=== PATIENT | female | born 1975 | race Caucasian/White ===

== ENCOUNTER 2023-08-11 07:00 | Outpatient (OUT) | payer OTHER, SELFPAY ==
--- NOTE | 2023-08-11 07:00 | NM_ITS ---
The [address] [address] Patient Name: YASMIN MCDOWELL MRN: [id number] date: 1975 Sex: F Assigned Patient Location: [place] Current [place] Location: [place] Accession/Order Number: [id number] Exam Date: 08/11/2023 07:00 Report Date: 08/11/2023 13:03 At the request of: CHI CORREA Procedure: [place] hepatobiliary w pharm EXAMINATION: [place] hepatobiliary w pharm HISTORY: RIGHT UPPER QUADRANT PAIN COMPARISON: No relevant comparison available. TECHNIQUE: Radionuclide hepatobiliary imaging was performed after intravenous injection of 4.9 mCi Tc-99m DELL derivative with sequential acquisitions every 1 minute for one hour. Hepatobiliary imaging with gallbladder ejection fraction analysis was then performed with sequential imaging every 1 minute for 60 minutes following ingestion of 8 oz. Ensure Plus. FINDINGS: LIVER: Normal, prompt and uniform radiotracer uptake and clearing. BILIARY DUCTS: Normal radioisotopic biliary excretion. GALLBLADDER: Normal with no evidence of cystic duct obstruction. INTESTINE: Normal with no evidence of common biliary ductal obstruction. EJECTION FRACTION: 0 % within 60 minutes. (Normal EF > 38%). OTHER: Negative. [place] hepatobiliary w pharm IMPRESSION: 1. No imaging of the gallbladder despite normal gallbladder filling; ball-valve type obstruction versus biliary dyskinesia. Electronically authenticated by: NETTA CANO Date: 08/11/2023 13:03
== END 2023-08-11 07:01 | disposition home or self-care (01) ==
LOC: NM 07:00
PROVIDERS: PCP Family Medicine; Visit Provider Physician Assistant
DX: R10.11 Right upper quadrant pain (principal)
CPT/HCPCS: 78227; A9537

== ENCOUNTER 2023-10-15 12:29 | Emergency (ER) | payer OTHER, SELFPAY ==
[2023-10-15 12:33] VITALS: BP 133/72; PULSE 73; TEMP 36.7; O2SAT 98; BMI 30.4
--- NOTE | 2023-10-15 12:35 | XR_ITS ---
The [address] [address] Patient Name: YASMIN MCDOWELL MRN: [id number] date: 1975 Sex: F Assigned Patient Location: ER Current Patient Location: ER Accession/Order Number: [id number] Exam Date: 10/15/2023 12:50 Report Date: 10/15/2023 14:34 At the request of: LAVELLE STREETER Procedure: XR wrist LT min 3V EXAM: XR wrist LT min 3V HISTORY: fall COMPARISON: None. TECHNIQUE: 3 views. FINDINGS: Slightly impacted intra-articular fracture of the distal radius. Nondisplaced ulnar styloid process fracture. Diffuse soft tissue swelling. XR/XR wrist LT min 3V IMPRESSION: 1. Slightly impacted intra-articular distal radial fracture. 2. Nondisplaced ulnar styloid process fracture. 3. Diffuse soft tissue swelling. Electronically authenticated by: SUSAN IBARRA Date: 10/15/2023 14:34
--- OUTSIDE RECORDS SUMMARY | 2023-10-15 12:35 | XMS_ITS ---
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 Name Role Phone DR KARLA THORNTON Attending Unavailable NORBERTO, DR LEDEZMA Consulting Unavailable NORBERTO, DR LEDEZMA Primary Care Unavailable NORBERTO, DR LEDEZMA Admitting Unavailable MD Karla Thornton Primary Care Provider ELIJAH Correa Attending Provider MD Karla Thornton Primary Care Provider DO Evan Santillan Attending Provider Self, Referral Attending Provider Unavailable Evan Santillan Admitting Unavailable Evan Santillan Attending Unavailable Karla Thornton Primary Care Unavailable Self, Referral Admitting Unavailable Self, Referral Attending Unavailable Karla Thornton Primary Care Unavailable Samantha Horan Primary Care Provider [phone] YAAKOV MEDEIROS Attending Unavailable JANE PISANO Attending Unavailable SAMANTHA CORREA Attending Unavailable SAMANTHA CORREA Attending Unavailable EVAN SANTILLAN Attending Unavailable SAMANTHA CORREA Referring Unavailable Allergies Allergy Classification Reported Allergen(s) Allergy Type Date of Onset Reaction(s) Facility (1 source) Sulfamethoxazole / Trimethoprim Drug Allergy 11-28-19 14 [facility] Repository (7 sources) Sulfamethoxazole; Translations: [sulfamethoxazole] Drug Allergy 08-18-19 11 [facility] (7 sources) Trimethoprim; Translations: [trimethoprim] Drug Allergy 10-05-19 20 [facility] (3 sources) Hydroxychloroquine Drug Allergy 03-22-20 [facility] Work Phone: (3 sources) Lisinopril Allergy to substance 12-22-19 Shortness of breath [facility] (3 sources) Nitrofurantoin Drug Allergy 12-22-19 23 [facility] (3 sources) Sulfamethoxazole / Trimethoprim Drug Allergy 08-24-19 18 [facility] Encounters Encounter Date Encounter Type Care Provider Facility Start: 08-26-2023 End: 08-26-2023 ambulatory EVAN SANTILLAN Not Available Start: 07-11-2023 End: 07-11-2023 ambulatory SAMANTHA CORREA Not Available Start: 05-29-2023 Chart abstracting Samantha Stewartwarren er PA Work Phone: [facility] Start: 05-20-2023 Bamboo flowsheet Jane D Za hler DO Work Phone: [facility] Start: 05-20-2023 Bamboo flowsheet Jane D Za hler DO Work Phone: [facility] Start: 05-20-2023 End: 05-20-2023 ambulatory JANE PISANO Not Available Start: 05-20-2023 End: 05-20-2023 Office outpatient new 45 minutes Jane Murphyhler DO Work Phone: [facility] Comment on above: Long-term use of Jm quenil (Primary Dx); Dry eyes; Blepharitis of upper and lower eyelids of both eyes, unspecified type Start: 03-22-2023 End: 03-22-2023 ambulatory SAMANTHA CORREA Not Available Start: 03-02-2023 End: 03-02-2023 ambulatory YAAKOV MEDEIROS Not Available Start: 02-04-2023 End: 02-04-2023 ambulatory Referral Self Facility:[facility] Start: 02-04-2023 End: 02-04-2023 ambulatory MD Karla Thornton Work Phone: [facility] Work Phone: Start: 02-04-2023 End: 02-04-2023 Patient encounter procedure MD Karla Thornton Work Phone: [facility] Work Phone: Start: 01-27-2023 End: 01-27-2023 ambulatory Evan Esqueday Facility:[facility] Start: 01-27-2023 End: 01-27-2023 Departed Referred MD Karla Thornton Work Phone: [facility] Work Phone: Start: 01-22-2022 End: 01-22-2022 ambulatory MD Karla Thornton Work Phone: [facility] Work Phone: Start: 01-22-2022 End: 01-22-2022 Patient encounter procedure MD Karla Thornton Work Phone: [facility] Start: 02-23-2021 End: 02-23-[address] KARLA THORNTON Facility:[facility] Immunizations Immunization Date Immunization Notes Care Provider Fa cility 01-14-2021 tetanus toxoid, redu kamilah diphtheria toxoid, and acellular pertussis vaccine, adsorbed Jane Pisano DO Work Phone: [facility] 02-15-2018 seasonal influenza, intradermal, preservative free Jane Pisano DO Work Phone: [facility] 02-15-2018 influenza virus vacc ine, unspecified formulation Jane Pisano DO Work Phone: [facility] 02-18-2016 influenza, injectabl e, quadrivalent, contains preservative Jane Pisano DO Work Phone: [facility] Medications Current Medications Medication Drug Class(es) Dates Sig (Normalized) Sig (Original) cholecalciferol 0.125 mg oral capsule (3 sources) Vitamin D cholecalciferol (Vitamin D-3) 125 MCG (5000 UT) capsule 1 (one) time each day at the same time. 0 Active estradiol 1 mg oral tablet (3 sources) Estrogen take 1 tablet by mouth in the morning estradiol (Estrace) 1 MG tablet Take 1 mg by mouth in the morning. 0 Active famotidine 20 mg oral tablet (3 sources) Histamine-2 Receptor Antagonist Start: 10-05-19 take 1 tablet by mouth once daily Famotidine (Pepcid) 20 mg Tablet Active 20 MG PO Daily October 05, 2019 12:00am fluticasone propionate 0.5 mg/ml topical cream (3 sources) Corticosteroid fluticasone (Cut ivate) 0.05 % cream Apply 1 application topically in the morning and 1 application before bedtime. 0 Active hydroCHLOROthiazide 25 mg oral tablet (3 sources) Thiazide Diuretic take 1 tablet by mouth in the morning hydroCHLOROthiazide (HYDRODiuril) 25 MG tablet Take 25 mg by mouth in the morning. 0 Active hydroCHLOROthiazide 25 mg / losartan potassium 100 mg oral tablet (3 sources) Thiazide Diuretic, Angiotensin 2 Receptor Roberto Carlos Start: 10-05-19 take 1 tablet by mouth once daily Losartan-Hydrochloroth iazide Active 1 TAB PO Daily October 05, 2019 12:00am hydroxychloroquine sulfate 200 mg oral tablet (6 sources) Antimalarial, Antirheumatic Agent Start: 10-05-19 take 200 mg by mouth once daily Hydroxychloroquine Active 200 MG PO Daily October 05, 2019 12:00am levothyroxine sodium 0.075 mg oral tablet (6 sources) l-Thyroxine Start: 10-05-19 Synthroid 75 MCG tablet Indications: Acquired hypothyroidism (CMS/HCC) TAKE 1 TABLET ONCE DAILY 90 tablet 3 11/17/2022 Active minocycline 50 mg oral tablet (3 sources) Tetracycline-clas s Drug Start: 10-05-19 take 50 mg by mouth once daily Minocycline Active 50 MG PO Daily October 05, 2019 12:00am Multiple Vitamin (multivitamin) tablet (3 sources) take 1 tablet by mouth in the morning Multiple Vitamin (multivitamin) tablet Take 1 tablet by mouth in the morning. 0 Active olmesartan medoxomil 40 mg oral tablet (3 sources) Angiotensin 2 Receptor Roberto Carlos Start: 12-22-19 olmesartan (BENIcar) 40 MG tablet Indications: Benign essential hypertension (CMS/HCC) TAKE 1 TABLET ONCE DAILY 100 tablet 3 12/21/2022 Active omeprazole 40 mg delayed release oral capsule (6 sources) Proton Pump Inhibitor Start: 10-05-19 omeprazole (PriLOSEC) [address] capsule Indications: LPRD (laryngopharyngeal reflux disease) TAKE 1 CAPSULE ONCE DAILY 30 MINUTES BEFORE MORNING MEAL 90 capsule 3 02/03/2023 Active Semaglutide-Weight Management (Wegovy) 0.25 MG/0.5ML solution auto-injector (3 sources) Start: 03-22-20 Semaglutide-Weight Management (Wegovy) 0.25 MG/0.5ML solution auto-injector Indications: Class 1 obesity without serious comorbidity with body mass index (BMI) of 30.0 to 30.9 in adult, unspecified obesity type INJECT 0.25 MG SUBCUTANEOUSLY WEEKLY 0.5 mL 3 03/22/2023 Active tiZANidine 4 mg oral tablet (3 sources) Central alpha-2 Adrenergic Agonist Start: 02-24-20 take 1 tablet by mouth every six hours for muscle spasms tiZANidine (Zanaflex) 4 MG tablet Indications: Neck pain Take 1 tablet (4 mg) by mouth every 6 (six) hours if needed for muscle spasms for up to 10 days. 30 tablet 0 02/23/2023 Active Payers Date Payer Category Payer Self-pay [id number] 2021 Unknown [employer] [id number] 2021-Present [address] [place] [address] [id number] 2021 Unknown [id number] 1975 Unknown [id number] 1975 Unknown [id number] 1975 Unknown [id number] 1975 Unknown [id number] 1975 Unknown [id number] 1975 Unknown [id number] 1961 Unknown [id number] Unknown [id number] Unknown [id number] Plan of Treatment Date Care Activity Detail Author Start: 01-27-2033 Screening for malign ant neoplasm of colon [facility] Start: 02-05-2024 Screening for malign ant neoplasm of breast Mammogram [facility] Start: 10-16-2023 Influenza vaccination Influenza Vacc ine (#1) [facility] Comment on above: Postponed from 12/17 (Patient Refused) Start: 05-30-2023 End: 05-30-2023 Patient encounter procedure 05/30/2023 10:00 AM EST Office Visit [facility] [address] [facility] [address] [place] [id number] Samantha Correa PA [address] [place] [address] [facility] Start: 05-20-2023 End: 05-20-2023 Patient encounter procedure 05/20/2023 9:45 AM EST Office Visit [facility] [address] [place] [id number] Jane Pisano DO [address] [place] [address] Arrived [facility] Comment on above: Arrived Start: 1975 Screening for malign ant neoplasm of colon [facility] Problems Active Problems Problem Classification Problem Date Documented Date Episodic/Chronic Anxiety disorders (3 sources) Generalized anxiety disorder; Translations: [Generalized anxiety disorder] Onset: 12-21-2022 12-21-2022 Chronic Cataract (3 sources) Nuclear senile cataract; Translations: [Age-related nuclear cataract, unspecified eye] Onset: 12-21-2022 12-21-2022 Chronic Diseases of white blood cells (9 sources) Lymphocytopenia; Translations: [Lymphocytopenia] Onset: 12-21-2022 10-05-2019 Chronic Disorders of lipid metabolism (3 sources) Hyperlipidemia; Translations: [Hyperlipidemia, unspecified] Onset: 12-21-2022 12-21-2022 Chronic Esophageal disorders (3 sources) Laryngopharyngeal reflux; Translations: [Gastro-esophageal reflux disease without esophagitis] Onset: 12-21-2022 12-21-2022 Chronic Essential hypertension (3 sources) Benign essential hypertension; Translations: [Essential (primary) hypertension] Onset: 08-01-2008 12-21-2022 Chronic Fever of unknown origin (1 source) Fever, unspecified; Translations: [FEVER UNSPECIFIED] Onset: 02-28-2021 Episodic Glaucoma (3 sources) Preglaucoma, unspecified, bilateral; Translations: [Preglaucoma, unspecified] Onset: 12-21-2022 12-21-2022 Chronic Inflammation; infection of eye (except that caused by tuberculosis or sexually transmitteddisease) (3 sources) Blepharitis of upper and lower eyelids of bilateral eyes; Translations: [Unspecified blepharitis right eye, upper and lower eyelids] Onset: 05-20-2023 05-20-2023 Episodic Joint disorders and dislocations; trauma-related (3 sources) Articular cartilage disorder of shoulder region; Translations: [Other articular cartilage disorders, right shoulder] Onset: 12-21-2022 12-21-2022 Chronic Nutritional deficiencies (3 sources) Vitamin D deficiency; Translations: [Vitamin D deficiency, unspecified] Onset: 12-21-2022 12-21-2022 Chronic Other and unspecified benign neoplasm (3 sources) Neoplasm of ovary; Translations: [Benign carcinoid tumors of other sites] 10-05-2019 Episodic Other and unspecified benign neoplasm (1 source) Personal history of colonic polyps; Translations: [Personal history of colonic polyps] Onset: 01-27-2023 Episodic Other eye disorders (3 sources) Dry eyes; Translations: [Dry eye syndrome of bilateral lacrimal glands] Onset: 05-20-2023 05-20-2023 Episodic Other liver diseases (3 sources) Steatosis of liver; Translations: [Fatty (change of) liver, not elsewhere classified] Onset: 12-21-2022 12-21-2022 Chronic Other nervous system disorders (3 sources) Carpal tunnel syndrome of right wrist; Translations: [Carpal tunnel syndrome, right upper limb] Onset: 12-21-2022 12-21-2022 Chronic Other nutritional; endocrine; and metabolic disorders (3 sources) Obesity; Translations: [Obesity, unspecified] Onset: 03-22-2023 03-22-2023 Chronic Other upper respiratory disease (3 sources) Allergic rhinitis; Translations: [Allergic rhinitis, unspecified] Onset: 09-03-2009 12-21-2022 Chronic Systemic lupus erythematosus and connective tissue disorders (9 sources) Mucous membrane dryness; Translations: [Sicca syndrome, unspecified] Onset: 06-29-2010 12-21-2022 Chronic Thyroid disorders (6 sources) Hypothyroidism; Translations: [Hypothyroidism, unspecified] Onset: 12-21-2022 12-21-2022 Chronic Unclassified (3 sources) CONTACT W/AND (SUSP) EXPOS COVID-19; Translations: [CONTACT W/AND (SUSP) EXPOS COVID-19] Onset: 02-28-2021 Unclassified (1 source) COUGH, UNSPECIFIED; Translations: [COUGH, UNSPECIFIED] Onset: 02-28-2021 Unclassified (1 source) Encounter for screening mammogram for malignant neoplasm of breast; Translations: [Encounter for screening mammogram for malignant neoplasm of breast] Onset: 02-04-2023 Past or Other Problems Problem Classification Problem Date Documented Date Episodic/Chronic Anal and rectal conditions (3 sources) Hyperplastic polyp of large intestine; Translations: [Rectal polyp] Onset: 3 02-04-2023 Episodic Blindness and vision defects (3 sources) Bilateral myopia of eyes; Translations: [Myopia, bilateral] Onset: 3 12-21-2022 Episodic Cancer; other and unspecified primary (3 sources) History of benign carcinoid neoplasm; Translations: [Personal history of benign carcinoid tumor] Onset: 3 01-14-2023 Episodic Deficiency and other anemia (3 sources) Iron deficiency anemia; Translations: [Iron deficiency anemia, unspecified] Onset: 3 12-21-2022 Episodic Other aftercare (4 sources) Drug therapy finding; Translations: [Other snf (current) drug therapy] Onset: 3 12-21-2022 Episodic Other and unspecified benign neoplasm (3 sources) History of polyp of colon; Translations: [Personal history of colonic polyps] Onset: 3 01-14-2023 Episodic Other and unspecified benign neoplasm (6 sources) Carcinoid tumor; Translations: [Benign carcinoid tumor of unspecified site] Onset: 4 Resolved: 3 03-22-2023 Episodic Other and unspecified benign neoplasm (3 sources) Mucinous cystadenoma of ovary; Translations: [Benign neoplasm of unspecified ovary] Onset: 4 Resolved: 3 03-22-2023 Episodic Other endocrine disorders (3 sources) Polycystic ovary syndrome; Translations: [Polycystic ovarian syndrome] Onset: 0 Resolved: 3 03-22-2023 Chronic Unclassified (1 source) CONTACT W/AND (SUSP) EXPOS COVID-19; Translations: [CONTACT W/AND (SUSP) EXPOS COVID-19] Onset: 1 Urinary tract infections (3 sources) Chronic tubulointerstitial nephritis; Translations: [Chronic tubulo-interstitial nephritis, unspecified] Onset: 3 12-21-2022 Episodic Procedures Date Procedure Procedure Detail Performing Clinician Start: 05-20-2023 Visual field xm uni/bi w/interp extended exam Jane Pisano DO Work Phone: Start: 02-04-2023 End: 02-04-2023 Screening mammography of bilateral breasts MD Karla Thornton Work Phone: Start: 01-27-2023 Colonoscopy Jane Pisano DO Work Phone: Start: 10-04-2022 H/O: hysterectomy History of hysterectomy Jane Pisano DO Work Phone: Start: 01-22-2022 Screening mammography of bilateral breasts MD Karla Thornton Work Phone: Results Test Name Value Interpretation Reference Range Facil ity Perimetry studyon 05-20-2023 Radiology Study observation (narrative) [facility] MM screening mammo BI w/CADo n 02-04-2023 MM screening mammo BI w/CAD [facility] [address] [place] [address] Mammography Report Signed Patient: Yasmin Eden MR#: [id number] 120 : 1975 Acct:[id number] Age/Sex: 47 / F ADM Date: 02/04/23 Loc: [place] Room: Type: [facility] Attending Dr: Referral Self Copies to: Karla Thornton MD SELF,REFERRAL Ordering Provider: SELF,REFERRAL Date of Service: 02/04/23 MM/MM screening mammo BI w/CAD: SCREENING CLINICAL DATA: Screening for malignancy. BILATERAL SCREENING MAMMOGRAMS - FULL FIELD DIGITAL WITH TOMOSYNTHESIS AND CAD Tomosynthesis craniocaudal and mediolateral oblique views of both breasts were obtained using low- dose digital technique. Comparison is made to prior studies from 01/23/2020, 01/02/2021, 12/31/2019, and 05/19/2018. This examination was reviewed with the aid of CAD. There are scattered fibroglandular densities. Benign-appearing lymph nodes are noted along the chest wall. Punctate benign-appearing calcifications are present bilaterally. Similar focal asymmetries noted bilaterally. There are no dominant masses, typically malignant calcifications or architectural distortion. There has been no significant interval change. MM/MM screening mammo BI w/CAD IMPRESSION: NO MAMMOGRAPHIC EVIDENCE OF MALIGNANCY. ROUTINE FOLLOW-UP IS RECOMMENDED IN ONE YEAR. RESULT CODE: 2 Benign Findings(s) DENSITY CODE: 2 (approximately 25-50% glandular) FOLLOW UP: 1YR The false-negative rate of mammography is approximately 10-percent. Management of a palpable abnormality must be based on clinical grounds. Patient was entered into a reminder system with a target due date for the next mammogram. Impression dictated by: Jose F Leavitt M.D.02/04/2023 10:52 AM Dictation Location: [facility] Transcribed By: [facility] 02/04/23 105 Dictated By: Jose F Leavitt II, MD 02/04/23 1047 Signed By: 02/04/23 105 [facility] 01-27-2023 L - -------- Specimen: [id number] Received: 01/27/23 Status: TAMIKA Villeda Num: [id number] Spec Type: Surgical Subm Dr: Evan Santillan DO Tissues: A Colon Biopsy (RECTAL POLYP) Procedures: HE/2, Gross/Micro L4 -------- Age/ Patient Sex Location Account Attending Physician -------- Yasmin Eden 47/F MONICA [id number] Evan Santillan DO -------- SPEC NUM: [id number] RECD: 01/27/23 STATUS: TAMIKA VILLEDA NUM: [id number] LEX: 01/27/23- YANY DR: Evan Santillan DO ENTERED: 01/27/[address]: [facility] SPEC TYPE: Surgical DEPT: S ORDERED: HE/2, Gross/Micro L4 ORDERED: HE/2, Gross/Micro L4 Pathological Diagnosis Rectal polyp biopsy: - Polypoid mucosa with small lymphoid aggregates and the focally occasionally mildly associated hyperplastic enlargements or elongations of crypt glands, compatible with sampling of benign mucosal polyp, otherwise without any glandular dysplasia identified Clinical Information History colon polyps Gross Description Received in formalin labeled with the patient's name, date of and rectal polyp is one munroe tissue measuring 0.6 x 0.3 x 0.2 cm admixed with fecal material. Entirely submitted in one cassette labeled A1. Microscopic Description Two H E slides reviewed. The microscopic examination confirms the diagnosis. CPT Codes 90071 -------- -------- Specimen: [id number] Received: 01/27/23 Status: TAMIKA Villeda Num: [id number] Spec Type: Surgical Subm Dr: Evan Santillan DO Tissues: A Colon Biopsy (RECTAL POLYP) Procedures: HE/2, Gross/Micro L4 -------- Patient: Yasmin Eden [id number] (Continued) -------- Signed (signature on file) Seth Belcher MD 01/28/23 1718 Normal [facility] US RUQon 08-20-2022 US RUQ HISTORY: Right upper quadrant pain COMPARISON: Ultrasound 06/15/2021 TECHNIQUE: Ultrasound evaluation was performed of the right upper quadrant of the abdomen FINDINGS: Increased echogenicity of the liver. Normal contour of the liver. No liver lesion or intrahepatic biliary dilatation identified. The gallbladder is physiologically distended. No cholelithiasis or pericholecystic fluid. Gallbladder wall thickness is normal measured at approximately 1.5 mm. Common bile duct is normal measuring approximately 2.7 mm in diameter. No overt abnormality of the pancreas. IMPRESSION: Hepatic steatosis. Report reported and signed by Charles Oakes on 08/20/2022 1247 Normal [facility] Covid-19 PCR ([facility])on SARS-CoV-2 (COVID-19) RNA NAVEED+probe Ql (Unsp spec) Not detected Normal NOT DETECTED [facility] Comment on above: Result Comment: This test is not yet approved or cleared by the [place] FDA. When there are no FDA-approved or cleared tests available, and other criteria are met, FDA can make tests available under an emergency access mechanism called an Emergency Use Authorization (EUA). The EUA for this test is supported by the Plumber'S Assistant of Health and Human Service's (HHS's) declaration that circumstances exist to justify the emergency use of in vitro diagnostics for the detection and/or diagnosis of the virus that causes COVID-19. This EUA will remain in effect (meaning this test can be used) for the duration of the COVID-19 declaration justifying emergency of IVDs, unless it is terminated or revoked by FDA (after which the test may no longer be used). When diagnostic testing is negative, the possibility of a false negative should be considered in the context of a patient's recent exposures and the presence of clinical signs and symptoms consistent with SARS-CoV-2. Performed By: #### [facility] #### [facility] [address] [address] [address] Luzma Belcher Social History Date Type Detail Facility Start: 03-22-2023 End: 05-20-2023 Alcohol intake Current drinker of alcohol (finding) [facility] Start: 03-22-2023 End: 05-20-2023 History of Social function [facility] Start: 03-22-2023 End: 05-20-2023 Tobacco use panel [facility] Start: 01-14-2023 Tobacco use and exposure Smokeless tobacco non-user [facility] Start: 01-13-2023 Alcohol Comment caffeine: coffee, so da [facility] Start: 10-05-2019 End: 01-14-2023 Tobacco smoking status NHIS Never smoked tobacco (finding) [facility] Start: 1975 Sex Assigned At Female F [facility] Start: 1975 Sex Assigned At Not on file N [facility] Perimetry study 05-20-2023 Note Date & Type Note Facility 05-20-2023 Note Right Eye Reliability was good. Progression has been stable. Foveal threshold was normal. Findings include normal observations. Left Eye Reliability was good. Progression has been stable. Foveal threshold was normal. Findings include normal observations. [facility] History of Present illness Narrative 05-20-2023 Jane Pisaon, DO - 05/20/2023 9:45 AM EST Note Date & Type Note Facility 05-20-2023 History of Presen t illness Narrative Images from the original note were not included. Assessment/Plan Diagnoses and all orders for this visit: Long-term use of Plaquenil - Plaquenil 200mg BID (2018?) A complete ophthalmic exam was performed including spectral-domain optical coherence tomography (SD-OCT) and Fernandes visual field (10-2). All were found to be within normal limits with no macular toxicity found. Continue with annual visits performing the above evaluations. This will be adjusted to [id number] when deemed necessary due to macular risk factors and/or length of time and dosage of medication taken. Dry eyes - Dry Eyes OU -- Environmental changes to minimize dryness and exposure and the use of artificial tears were recommended. Blepharitis of upper and lower eyelids of both eyes, unspecified type - Blepharitis, posterior type OU - The patient exhibits inspissated meibomian glands. Warm compresses, lid massage and lid scrubs were recommended. documented in this encounter [facility] Clinical Note 08-20-2022 Note Date & Type Note Facility 08-20-2022 Note History: Thyroid nod ules Technique: Ultrasound evaluation was performed of the thyroid. Comparison: Thyroid ultrasound 08/03/2021 Findings: The right lobe of the thyroid gland measures 4.3 x 1.2 x 2.1 cm. The right lobe is diffusely homogeneous. A cyst within the right lobe has not significantly changed, measuring 9 x 9 x 6 mm. The left lobe of the thyroid gland measures 3.6 x 1.5 x 1.6 cm. The left lobe is diffusely homogeneous without mass or nodule. The isthmus measures 0.3 cm. Nodule within the isthmus measuring 2.4 x 0.2 cm has not significantly changed. No increased vascularity of the thyroid. IMPRESSION: Stable thyroid cyst and nodule. Report reported and signed by Charles Oakes on 08/20/2022 1238 [facility] Tear[facility] Host Evaluation note Note Date & Type Note Facility Evaluation note No [facility]: Evaluation note Note Date & Type Note Facility Evaluation note Diagnosis Long-term use of Plaquenil- Primary Dry eyes Unspecified tear film insufficiency Blepharitis of upper and lower eyelids of both eyes, unspecified type documented in this encounter [facility] Summary Purpose Family History No Family History Records Found Relationship Condition Age at Onset Recorded Date/T terrence Not Specified Atrial fibrillation Unknown Hypertension Unknown Cerebrovascular accident (CVA) Unknown Advance Directives No Advanced Directives Records Found Advance Directive Response Recorded Date/ Time Advance Directives No April 27, 2018 2:56pm Chief Complaint and Reason for Visit Chief Complaint Screening Chief Complaint Z86.010 Hx colon mariella yps Screening Additional Source Comments INFORMATION SOURCE (unrecogn ized section and content) DATE CREATED AUTHOR 03/01/2021 [facility] DATE CREATED AUTHOR AUTHOR'S ORGANIZ ATION 08/21/2022 [facility] Me dical Specialist DATE CREATED AUTHOR AUTHOR'S ORGANIZ ATION 02/18/2023 [facility] DATE CREATED AUTHOR AUTHOR'S ORGANIZ ATION 08/28/2023 [facility] dical Specialists EPIC Care Teams (unrecognized sec tion and content) Team Status: Inactive Member Role Status Dates Karla Thornton MD Primary Care Provider Active ROSCOE AlbertoC Attending Provider Active Team Status: Active Member Role Status Dates Karla Thornton MD Primary Care Provider Active Team Status: Inactive Member Role Status Dates Karla Thornton MD Primary Care Provider Active Referral Self Attending Provider Active Team Status: Inactive Member Role Status Dates Karla Thornton MD Primary Care Provider Active Evan Santillan DO Attending Provider Active Livestock Counter Relationship Specialty Start Date End Date Samantha Correa PA [address] [facility] [address] [place] [address] PCP - General Family Medicine 09/20/22 Livestock Counter Relationship Specialty Start Date End Date Samantha Correa PA [address] [facility] [address] [place] [address] PCP - General Family Medicine 09/20/22 Livestock Counter Relationship Specialty Start Date End Date Samantha Correa PA [address] [facility] [address] [place] [address] PCP - General Family Medicine 09/20/22 Goals (unrecognized section and content) Goals may be documented in a n alternate sectionGoals may be documented in an alternate sectionGoals may be documented in an alternate section Reason for Visit (unrecogniz ed section and content) Reason Comments Eye Exam FOR RECORDS PERTAINING TO PATIENTS WHO ARE OR HAVE BEEN ENROLLED IN A CHEMICAL DEPENDENCY/SUBSTANCEABUSE PROGRAM, SOME INFORMATION MAY BE OMITTED. This clinical summary was aggregated from multiple sources. Caution should be exercised in using it in the provision of clinical care. This summary normalizes information from multiple sources, and as a consequence, information in this document may materially change the coding, format and clinical context of patient data. In addition, data may be omitted in some cases. CLINICAL DECISIONS SHOULD BE BASED ON THE PRIMARY CLINICAL RECORDS. [employer] provides no warranty or guarantee of the accuracy or completeness of information in this document.
--- NOTE | 2023-10-15 12:38 | ED.UPPEXIN1 ---
HPI HPI - Extremity Injury (Upper) General Chief Complaint: Extremity Injury, Upper Stated Complaint: LEFT WRIST PAIN Time Seen by Provider: 10/15/23 12:35 Source: patient Mode of arrival: walk-in Limitations: no limitations History of Present Illness HPI narrative: 48-year-old female presents to the emergency department for left wrist pain. She fell in her garage about an hour ago. She is right-handed and did not sustain any other injury. She point circumferentially around the wrist indicate where her pain is. Her elbow and fingers do not hurt. Related Data Previous Rx's ?Medication ?Instructions ?Recorded ibuprofen 800 mg tablet 800 mg PO Q8H PRN pain #20 tabs 10/15/23 Allergies Allergy/AdvReac Type Severity Reaction Status Date / Time No Known Drug Allergies Allergy Verified 10/15/23 12:35 Opioid HPI Opioid Management Most Recent Pain and Opioid Data: Last Pain Scale 7 10/15/23 12:37 Review of Systems ROS Narrative A ten point review of systems is negative except as noted above. Exam Narrative Exam Narrative: Nurses note and vital signs reviewed and patient is not hypoxic. General: The patient appears well and in no apparent distress. Patient is resting comfortably on cart. Skin: Warm, dry, no pallor noted. There is no rash noted. Head: Normocephalic, atraumatic Eye: Normal conjunctiva, no drainage Ears, Nose, Mouth, and Throat: oral mucosa is moist. Nares patent. Cardiovascular: Regular Rate and Rhythm Respiratory: Patient is in no distress, no accessory muscle use, lungs are clear to auscultation, no wheezing, rales or rhonchi Back: non-tender GI: Soft and nontender Musculoskeletal: The left wrist has no obvious deformity. She has some tenderness. Fingers have good range of motion. Skin intact. Neurological: A&O, normal speech Psychiatric: Cooperative Constitutional Vital Signs, click to edit/add: Last Vital Signs Temp 98.0 F 10/15/23 12:33 Pulse 73 10/15/23 12:33 Resp 16 10/15/23 12:33 BP 133/72 10/15/23 12:33 Pulse Ox 98 10/15/23 12:33 O2 Del Method Room Air 10/15/23 12:33 Course Vital Signs Vital signs: Vital Signs Temperature 98.0 F 10/15/23 12:33 Pulse Rate 73 10/15/23 12:33 Respiratory Rate 16 10/15/23 12:33 Blood Pressure 133/72 10/15/23 12:33 Pulse Oximetry 98 10/15/23 12:33 Oxygen Delivery Method Room Air 10/15/23 12:33 Temperature 98.0 F 10/15/23 12:33 Pulse Rate 73 10/15/23 12:33 Respiratory Rate 16 10/15/23 12:33 Blood Pressure 133/72 10/15/23 12:33 Pulse Oximetry 98 10/15/23 12:33 Oxygen Delivery Method Room Air 10/15/23 12:33 MDM - Extremity Injury (Upper) MDM Narrative Medical decision making narrative: Distal radius fracture is identified, intra-articular. Short arm splint applied by me, found to be appropriate, she is neurovascular intact. Likewise sling applied, she is neurovascularly intact after checked by me. She has a preferred orthopedist with whom she will follow-up. The possible need for surgery was discussed. She was offered pain medication stronger than ibuprofen but prefers to just take ibuprofen. Differential Diagnosis Differential diagnosis: Likely sprain and strain of wrist and other (Wrist fracture) Imaging Data Left wrist x-ray: My impression: Intra-articular distal radius fracture as well as ulnar styloid fracture. Discharge Plan Discharge Stand Alone Forms: Portal Instructions Chief Complaint: Extremity Injury, Upper Clinical Impression: Left wrist fracture Patient Disposition: Home, Self-Care Time of Disposition Decision: 13:28 Condition: Good Mode of Transportation: Private Vehicle Prescriptions / Home Meds: New ibuprofen 800 mg tablet 800 mg PO Q8H PRN (Reason: pain) Qty: 20 0RF Print Language: Serbian Instructions: Wrist Fracture in Adults (ED) Additional Instructions: Follow-up with Dr. Arias Referrals: BRISA THORNTON [Primary Care Provider] - 1 week
[2023-10-15 13:48] VITALS: BP 132/71; PULSE 84; O2SAT 100
== END 2023-10-15 13:51 | disposition home or self-care (01) ==
PROVIDERS: Emergency Provider Emergency Medicine; PCP Family Medicine
DX: S52.572A Other intraarticular fracture of lower end of left radius, initial encounter for closed fracture (principal); W19.XXXA Unspecified fall, initial encounter
CPT/HCPCS: 29125; 73110; 99283

== ENCOUNTER 2025-04-06 09:47 | Emergency (ER) | payer OTHER, SELFPAY ==
--- OUTSIDE RECORDS SUMMARY | 2023-10-27 10:15 | XMS_ITS ---
Author Organization The [facility] in [place] Address [address] [place] [address] Care Team Providers Care Evaluation Specialist Name Role Phone Karla Wong MD Primary Care Provider Avelino Zarate DO [phone] REASON FOR VISIT follow up Encounters Encounter Location Date Provider Diagnosis Rheumatology [facility] [address] [place] [address] 10/27/2023 Avelino Conway Plan Of Treatment Next Appt Details Provider Name:Avelino albrecht, 05/30/2025 03:00:00 PM, [address], [place], [address], Progress Notes * Anne MCDOWELL MDOB:[birth year] (49 yo F)Acc No.[id number]:10/27/2023 UNLOCKED PROGRESS NOTE Established Patient: Cece Anne CARRILLO :?Avelino Conway, DODOB:1975???Age:48 Y ???Sex:FemaleDate:4Phone:[phone]:[address] [place] [address]Pcp:Chanel Felix In:03:05 PM EST Subjective: * Chief Complaints: * 1 . Follow up. * Medical History: Objective: * Vitals: Assessment: Plan: * Treatment: * * Electronic signature of Avelino Conway DO, DO, [id number] on 04/06/2025 at 10:22 AM ESTSign off status: PendingVisit Status:?CANC (Cancelled) * Provider: Ronny Conway DO Date: 0 10/27/2023 Generated for Printing/Faxing/eTransmitting on:?04/06/2025 10:22 AM EST
--- OUTSIDE RECORDS SUMMARY | 2024-03-19 04:00 | XMS_ITS ---
Author Organization The [facility] in [place] Address [address] [place] [address] Care Team Providers Care Diesel Lube Tech Name Role Phone Karla Wong MD Primary Care Provider Saul Rueda [phone] REASON FOR VISIT -4 Month Follow Up- Encounters Encounter Location Date Provider Diagnosis Rheumatology [facility] [address] [place] [address] 03/19/2024 Saul Truong Plan Of Treatment Next Appt Details Provider Name:Avelino Maylin Whaley ntz, 05/30/2025 03:00:00 PM, [address], [place], [address], Progress Notes * Anne MCDOWELL MDOB:[birth year] (49 yo F)Acc No.[id number]:03/19/2024 UNLOCKED PROGRESS NOTE Established Patient: Cece CARRILLOAnne :?Saul Truong, MSN, DIRECT MAIL COORDINATOR-BCDOB:1975 ???Age:48 Y???Sex:FemaleDate:4Phone:[phone]:[address] [place] [address]Pcp:Karla Wong MD Subjective: * Chief Complaints: * 1 . -4 Month Follow Up-. * Medical History: Objective: * Vitals: Assessment: Plan: * Treatment: * * Electronic signature of Saul Truong , ROTARY DRILL OPERATOR, CART ATTENDANT.ROTARY DRILL OPERATOR.[id number] on 04/06/2025 at 10:23 AM ESTSign off status: PendingVisit Status:?R/S (Rescheduled) * Provider: JAQUAN Mccabe, DIRECT MAIL COORDINATOR-BC Date: 05/20/2023 Generated for Printing/Faxing/eTransmitting on:?04/06/2025 10:23 AM EST
--- OUTSIDE RECORDS SUMMARY | 2024-04-20 06:10 | XMS_ITS ---
Author Organization The [facility] in [place] Address [address] [place] [address] Care Team Providers Care Lost And Found Clerk Name Role Phone Karla Wong MD Primary Care Provider Unavailabl e Provider, Lab Unavailable [phone] REASON FOR VISIT LBC Encounters Encounter Location Date Provider Diagnosis [facility] Lab [address] [place] [address] 04/20/2024 Lab Provider Plan Of Treatment Next Appt Details Provider Name:Avelino Maylin Whaley ntz, 05/30/2025 03:00:00 PM, [address], [place], [address], Progress Notes * Anne EDEN MDOB:[birth year] (49 yo F)Acc No.[id number]:04/20/2024 UNLOCKED PROGRESS NOTE Progress Note Patient: Cece Anne CARRILLO :?Lab ProviderDOB:1975???Age:48 Y???Sex: FemaleDate:04/20/2024Phone:[phone]:[address] [place] [address]Pcp:Chanel Felix In:11:13 AM ESTCheck Out:11:14 AM EST Subjective: * Chief Complaints: * 1 . LBC. * Medical History: Objective: * Vitals: Assessment: Plan: * Treatment: * * Electronic signature of Lab Provider on 04/06/2025 at 10:23 AM ESTSign off status: PendingVisit Status:?CHK (Check Out) * Provider: Arabella araujo Provider Date: 0 04/20/2024 Generated for Printing/Faxing/eTransmitting on:?04/06/2025 10:23 AM EST
--- OUTSIDE RECORDS SUMMARY | 2024-10-25 10:50 | XMS_ITS ---
Author Organization The [facility] in [place] Address [address] [place] [address] Care Team Providers Care Primary Montessori Teacher Name Role Phone Karla Wong MD Primary Care Provider Unavailabl e Provider, Lab Unavailable [phone] REASON FOR VISIT CH Encounters Encounter Location Date Provider Diagnosis [facility] Lab [address] [place] [address] 10/25/2024 Lab Provider Plan Of Treatment Next Appt Details Provider Name:Avelino Maylin Whaley ntz, 05/30/2025 03:00:00 PM, [address], [place], [address], Progress Notes * Anne EDEN MDOB:[birth year] (49 yo F)Acc No.[id number]:10/25/2024 UNLOCKED PROGRESS NOTE Progress Note Patient: Cece Anne CARRILLO :?Lab ProviderDOB:1975???Age:49 Y???Sex: FemaleDate:10/25/2024Phone:[phone]:[address] [place] [address]Pcp:Chanel Felix In:03:46 PM ESTCheck Out:03:47 PM EST Subjective: * Chief Complaints: * 1 . CH. * Medical History: Objective: * Vitals: Assessment: Plan: * Treatment: * * Electronic signature of Lab Provider on 04/06/2025 at 10:22 AM ESTSign off status: PendingVisit Status:?CHK (Check Out) * Provider: Arabella araujo Provider Date: 0 10/25/2024 Generated for Printing/Faxing/eTransmitting on:?04/06/2025 10:22 AM EST
--- OUTSIDE RECORDS SUMMARY | 2025-03-22 04:30 | XMS_ITS ---
Author Organization The [facility] in [place] Address [address] [place] [address] Care Team Providers Care Automated Equipment Engineer Technician Name Role Phone Karla Wong MD Primary Care Provider Adin Conway DO Avelino Unavailable [phone] REASON FOR VISIT 5 month f/u Encounters Encounter Location Date Provider Diagnosis Rheumatology [facility] [address] [place] [address] 03/22/2025 Avelino Conway Plan Of Treatment Next Appt Details Provider Name:Avelino albrecht, 05/30/2025 03:00:00 PM, [address], [place], [address], Progress Notes * Anne MCDOWELL MDOB:[birth year] (49 yo F)Acc No.[id number]:03/22/2025 UNLOCKED PROGRESS NOTE Established Patient: Cece Anne CARRILLO :?Avelino Conway, DODOB:1975???Age:49 Y ???Sex:FemaleDate:03/22/2025Phone:[phone]:[address] [place] [address]Pcp:Karla Wong MD Subjective: * Chief Complaints: * 1 . 5 month f/u. * Medical History: Objective: * Vitals: Assessment: Plan: * Treatment: * * Electronic signature of Avelino Conway DO, DO, [id number] on 04/06/2025 at 10:23 AM ESTSign off status: PendingVisit Status:?R/S (Rescheduled) * Provider: Ronny Conway DO Date: 05/23/2024 Generated for Printing/Faxing/eTransmitting on:?04/06/2025 10:23 AM EST
--- OUTSIDE RECORDS SUMMARY | 2025-03-26 08:15 | XMS_ITS | Encounter Summary ---
Author Organization [facility] Address [address] [place] [address] Care Team Providers Care Wafer Production Lead Worker Name Role Phone Karla Wong MD Primary Care Provider [phone] Reason for Visit * Imaging (Routine) - ClosedSpecialtyDiagnoses / ProceduresReferred By Contact Referred To ContactRadiology Diagnoses Persistent cough for 3 weeks or longer History of immunosuppression Systemic lupus erythematosus, unspecified SLE type, unspecified organ involvement status (HCC) Procedures CT chest wo IV contrast Samantha Resendez, MAGDA [address] [facility] [address] [place] [address] Phone: tel: fax: [facility] [address] [facility] [address] [place] [address] Phone: tel: fax: Referral IDStatusReasonStart DateExpiration DateVisits RequestedVisits [id number]/ Encounter Details DateTypeDepartmentCare Team (Latest Contact Info)Llpbjntzmgq50/09/2025 8:15 AM ESTAncillary Procedure [facility] [address] [facility] [address] [place] [address] Persistent cough for 3 weeks or longer; History of immunosuppression; Systemic lupus erythematosus, unspecified SLE type, unspecified organ involvement status (HCC) Social History Tobacco UseTypesPacks/DayYears UsedDateSmoking Tobacco: NeverSmokeless Tobacco: NeverAlcohol UseStandard Drinks/WeekCommentsYes0 (1 standard drink = 0.6 oz pure alcohol)caffeine: coffee, sodaPHQ-2AnswerDate RecordedPatient Health Questionnaire-2 [id number] and Gender InformationValueDate RecordedSex Assigned at BirthNot on fileLegal SexFemale 06/30/2022 6:36 PM EDTGender IdentityNot on fileSexual OrientationNot on file documented as of this encounter Plan of Treatment Not on file documented as of this encounter Procedures Procedure NamePriorityDate/TimeAssociated DiagnosisCommentsCT CHEST WO IV HPZWCHEBFviovgd77/09/2025 8:35 AM EST Persistent cough for 3 weeks or longer History of immunosuppression Systemic lupus erythematosus, unspecified SLE type, unspecified organ involvement status (HCC) documented in this encounter Results * CT chest wo IV contrast (03/26/2025 8:35 AM EST)Anatomical RegionLaterality ModalityBody, ChestComputed TomographySpecimen (Source)Anatomical Location / LateralityCollection Method / VolumeCollection TimeReceived Time03/26/2025 1:14 PM EST Impressions 03/26/2025 1:19 PM EST No acute process in the thorax. ELECTRONICALLY SIGNED BY: Bobby Butt MD Narrative 03/26/2025 1:19 PM EST EXAMINATION: CT CHEST WO IV CONTRAST HISTORY: Persistent cough. History of fibrosis. TECHNIQUE: ??Spiral CT acquisition of the chest from the thoracic inlet to the upper abdomen without contrast. Dedicated sagittal and coronal reconstructions. All CT scans at this facility use dose modulation, iterative reconstruction, and/or weight based dosing when appropriate to reduce radiation dose to as low as reasonably achievable. COMPARISON: Chest x-ray 01/16/2025. No prior dedicated CT of the chest available. CT abdomen/pelvis 08/10/2024. RESULT: Lung parenchyma and pleura: Central airways grossly patent. No focal consolidation. No pleural effusion. No pneumothorax. Few small, less than 6 mm, pulmonary nodules. For example 3 mm nodule right lung (series 2 image 32). No suspicious pulmonary nodules. Thoracic inlet, heart, and mediastinum: Visualized thyroid unremarkable. No axillary, mediastinal, or hilar lymphadenopathy. Normal thoracic aorta. Normal pulmonary size artery. Normal heart size. Nocoronary artery calcifications. No pericardial effusion or thickening. Esophagus nondilated. Bones: ??No acute osseous findings. No destructive osseous lesions. Degenerative changes. Soft tissues: Unremarkable. Upper abdomen: ??No acute abnormality in the imaged upper abdomen. Cholecystectomy. Procedure Note Bobby Butt MD - 03/26/2025 EXAMINATION: CT CHEST WO IV CONTRAST HISTORY: Persistent cough. History of fibrosis. TECHNIQUE: Spiral CT acquisition of the chest from the thoracic inlet tothe upper abdomen without contrast. Dedicated sagittal and coronalreconstructions. All CT scans at this facility use dose modulation, iterativereconstruction, and/or weight based dosing when appropriate to reduceradiation dose to as low as reasonably achievable. COMPARISON: Chest x-ray 01/16/2025. No prior dedicated CT of the chestavailable. CT abdomen/pelvis 08/10/2024. RESULT: Lung parenchyma and pleura: Central airways grossly patent. No focal consolidation. No pleural effusion. No pneumothorax. Few small, less than6 mm, pulmonary nodules. For example 3 mm nodule right lung (series 2image 32). No suspicious pulmonary nodules. Thoracic inlet, heart, and mediastinum: Visualized thyroid unremarkable.No axillary, mediastinal, or hilar lymphadenopathy. Normal thoracic aorta.Normal pulmonary size artery. Normal heart size. No coronary arterycalcifications. No pericardial effusion or thickening. Esophagusnondilated. Bones: No acute osseous findings. No destructive osseous lesions.Degenerative changes. Soft tissues: Unremarkable. Upper abdomen: No acute abnormality in the imaged upper abdomen.Cholecystectomy. IMPRESSION: No acute process in the thorax. ELECTRONICALLY SIGNED BY: Bobby Butt MD Authorizing ProviderResult TypeResult StatusSamantha Saini [facility] PROCEDURES Final Result documented in this encounter Visit Diagnoses Diagnosis Persistent cough for 3 weeks or longer History of immunosuppression Systemic lupus erythematosus, unspecified SLE type, unspecified organ involvement status (HCC) documented in this encounter Care Teams Team MemberRelationshipSpecialtyStart DateEnd Date Karla Wong MD [address] [place] [address] PCP - GeneralFamily Medicine10/18/23documented as of this encounter
--- OUTSIDE RECORDS SUMMARY | 2025-03-27 09:00 | XMS_ITS | Encounter Summary ---
Author Organization [facility] Address [address] [place] [address] Care Team Providers Care Upper And Bottom Lacer Hand Name Role Phone Karla Wong MD Primary Care Provider [phone] Reason for Visit * ReasonCommentsCough Encounter Details DateTypeDepartmentCare Team (Latest Contact Info)Ztcfwwewspq44/10/2025 9:00 AM ESTOffice Visit [facility] [place] [address] [facility] [address] [facility] [address] [place] [address] Esteban Schilling MD 112 [facility] [address] [place] [address] Chronic cough (Primary Dx); History of immunosuppression; Non-seasonal allergic rhinitis due to pollen Social History Tobacco UseTypesPacks/DayYears UsedDateSmoking Tobacco: NeverSmokeless Tobacco: Never Tobacco Cessation:Counseling Given: Yes Alcohol UseStandard Drinks/WeekCommentsYes0 (1 standard drink = 0.6 oz pure alcohol)caffeine: coffee, sodaPHQ-2AnswerDate RecordedPatient Health Questionnaire-2 [id number] and Gender Information ValueDate RecordedSex Assigned at BirthNot on fileLegal KtvZehbph27/15/2023 6:36 PM EDTGender IdentityNot on fileSexual OrientationNot on filedocumented as of this encounter Last Filed Vital Signs Vital SignReadingTime TakenCommentsBlood Pressure--Pulse--Temperature-- Respiratory Rate--Oxygen Saturation--Inhaled Oxygen Concentration--Tpucrj022 kg (223 lb)03/27/2025 8:54 AM XORPfozlv074.8 cm (5' 10 )03/27/2025 8:54 AM ESTBody Mass Zgdzx886403/27/2025 8:54 AM ESTdocumented in this encounter Progress Notes * Esteban Schilling MD - 03/27/2025 9:00 AM EST Images from the original note were not included. Patient ID: Anne Eden is a 49 y.o. female who presents for: New LDI: Pt has had a barky chronic cough for over two months. She has had multiple treatments with no relief including a few rounds of steroids, tesslon perls, and antibiotics. She then had a PFT done which was normal. Because her PFT was normal, a CT of her lungs was done to ensure there was not somethingthat was missing in diagnosing the problem. She states it showed only some granulomas. She notes that her mother after several years of having the same dog developed an allergy to the dog. Her concern was that maybe she has developed an allergy to her dog Elaine. She had discussed with possibly doing a custom LDI to see if she found any improvement. She has watched all of [employer] FAGUO tu torials and was given all the consent forms to review and sign. Objective The patient is pleasant and in no acute distress The patient has good eye contact and clear speech 01/23/2025 1:06 PM 11/28/2024 1:20 PM 08/02/2024 8:10 AM 05/23/2024 1:18 PM Vitals BMI 32.11 kg/m2 30.99 kg/m2 31.05 kg/m2 31.57 kg/m2 BSA (m2) 2.24 m2 2.2 m2 2.2 m2 2.22 m2 Systolic 104 122 106 108 Diastolic 66 84 62 62 Heart Rate 98 83 78 95 SpO2 99 % 99 % 98 % 98 % Resp 16 16 16 Height (in) 5' 10 5' 10 5' 10 5' 10 Weight (lb) 223.8 216 216.4 220 Visit Report Report Report Report Report Allergies Allergen Reactions Lisinopril Shortness of breath Hydroxychloroquine Other Reaction(s): generic causes itching Nitrofurantoin Other Reaction(s): flu like symptoms Sulfamethoxazole Hives Other Reaction(s): Hives/Skin Rash Sulfamethoxazole-Trimethoprim hives Trimethoprim Other Reaction(s): Hives/Skin Rash Current Outpatient Medications on File Prior to Visit Medication Sig Dispense Refill albuterol (2.5 MG/3ML) 0.083% nebulizer solution Take 3 mL (2.5 mg) by nebulization every 6 (six) hours if needed for wheezing 75 mL 11 estradiol (Estrace) 1 MG tablet TAKE 1 TABLET (1 MG) BY MOUTH DAILY 100 tablet 3 fluticasone (Flonase) 50 MCG/ACT nasal spray USE 1 - 2 SPRAYS IN EACH NOSTRIL ONCE A DAY *PRIME PUMP/CLEAN TIP/REPLACE CAP* (Patient taking differently: PRN) 48 mL 3 hydroCHLOROthiazide (HYDRODiuril) 25 MG tablet TAKE ONE TABLET BY MOUTH ONCE DAILY 100 tablet 3 hydroxychloroquine (Plaquenil) 200 MG tablet Take 200 mg by mouth in the morning and 200 mg before bedtime. levothyroxine (Synthroid, Levoxyl) 75 MCG tablet TAKE 1 TABLET (75 MCG) BY MOUTH DAILY ON AN EMPTY STOMACH. 100 tablet 3 Multiple Vitamin (multivitamin) tablet Take 1 tablet by mouth in the morning. olmesartan (BENIcar) 40 MG tablet TAKE 1 TABLET (40 MG) BY MOUTH DAILY 100 tablet 3 pantoprazole (ProtoNix) 40 MG EC tablet TAKE 1 TABLET (40 MG) BY MOUTH IN THE MORNING. TAKE BEFORE MEALS. DO NOT CRUSH, CHEW, OR SPLIT.. 100 tablet 3 No current facility-administered medications on file prior to visit. 1. Chronic cough (Primary) This patient has a chronic complex problem, that is variable in nature, requiring education concerning pathology and treatment, complex re-evaluation of dilutions and volumes for the low-dose immunotherapy (LDI) treatment doses; managment requires complex decision making The patient, or their representatives, is here for LDI initial treatment after they have previouslyreviewed the recommended information sites. I further discussed with them that we will sometimes use Lyme Mix as another target for LDI in an attempt to treat their symptoms. They were educated concerning the disease process and the controversy surrounding treating persistent Lyme disease and other insect borne illnesses. These concepts include the thinking of; Infectious Disease Society of [place] (which is considered the standard of care), International Lyme and Associated Disease Society (which believes in the chronic infectious disease model), and the loss of immune tolerance concept. The consent form for Insect Borne Illnesses was reviewed and consent to treat was obtained. We have discussed their remaining symptoms and disease processes. We have discussed other options for LDI targets. Their questions were answered. We have discussed that any supplements (which LDI is considered) recommended have not undergone review or approval by the FDA and, therefore, have not been documented to be safe or effective to diagnose, treat, prevent, mitigate, or cure any condition or disease. The patient, and/or their representatives, understand that this is not FDA approved, not covered byany insurance company, will be a trial of treatment, and have consented to LDI. We have jointly agreed the LDI target and it's starting dilution. We reviewed how to titrate their LDI, the Essentials to Wellness , the importance of continued communication thru the patient portal, and to keep office appointments and bring their folders to each appointment. They will call after one week of the titrating dose and report one of 4 things (see LDI Dose Reportform); 1) Nothing happened 2) Flare of their symptoms 3) Improvement, but only lasted 2-5 days 4) Improvement that is continuing. - LDI; Place 1 Dose under the tongue See administration instructions Environmental 2. History of immunosuppression Comorbid condition 3. Non-seasonal allergic rhinitis due to pollen Comorbid condition No charge Please Note: Portions of this chart may have been created using voice recognition software. Occasionally a wrong-word or sound-like substitutions may have occurred due to inherent limitations of the voice recognition software. Please read the chart carefully and recognize, using context, where the substitutions may have occurred. documented in this encounter Plan of Treatment Not on file documented as of this encounter Visit Diagnoses Diagnosis Chronic cough- Primary Cough History of immunosuppression Non-seasonal allergic rhinitis due to pollen documented in this encounter Care Teams Team MemberRelationshipSpecialtyStart DateEnd Date Karla Wong MD [address] [place] [address] [address] [place] [address] PCP - GeneralFamily Medicine10/18/23documented as of this encounter
--- OUTSIDE RECORDS SUMMARY | 2025-03-29 03:45 | XMS_ITS ---
Author Organization [facility] in [place] Address [address] [place] [address] Care Team Providers Care Head Baker Name Role Phone Karla Wong MD Primary Care Provider Adin Conway DO Avelino Unavailable [phone] REASON FOR VISIT 5 month f/u Encounters Encounter Location Date Provider Diagnosis Rheumatology [facility] [address] [place] [address] 03/29/2025 Avelino Conway Plan Of Treatment Next Appt Details Provider Name:Avelino albrecht, 05/30/2025 03:00:00 PM, [address], [place], [address], Progress Notes * Anne MCDOWELL MDOB:[birth year] (49 yo F)Acc No.[id number]:03/29/2025 UNLOCKED PROGRESS NOTE Established Patient: Cece Anne CARRILLO :?Avelino Conway, DODOB:1975???Age:49 Y ???Sex:FemaleDate:03/29/2025Phone:[phone]:[address] [place] [id number]:Karla Wong MD Subjective: * Chief Complaints: * 1 . 5 month f/u. * Medical History: Objective: * Vitals: Assessment: Plan: * Treatment: * * Electronic signature of Avelino Conway DO, DO, [id number] on 04/06/2025 at 10:24 AM ESTSign off status: PendingVisit Status:?R/S (Rescheduled) * Provider: Ronny Conway DO Date: 1 05/30/2024 Generated for Printing/Faxing/eTransmitting on:?04/06/2025 10:24 AM EST
[2025-04-06 09:53] VITALS: BP 149/87; PULSE 122; TEMP 37.1; O2SAT 95; BMI 30.8
--- NOTE | 2025-04-06 10:03 | XR_ITS ---
[facility] [place] [id number] Patient Name: YASMIN MCDOWELL MRN: [id number] date: 1975 Sex: F Assigned Patient Location: ER Current Patient Location: ED.MAIN Accession/Order Number: [id number] Exam Date: 04/06/2025 10:20 Report Date: 04/06/2025 10:34 At the request of: LAVELLE STREETER MD Procedure: XR chest 1V Single view chest: CLINICAL HISTORY: Cough for 3 months COMPARISON: Chest 11/21/2018 FINDINGS: The heart is normal in size. The lungs are clear. The pulmonary vasculature is normal. Mediastinum and hilar regions are unremarkable. No pleural effusions are seen. Visualized bones are intact. XR/XR chest 1V IMPRESSION: NO ACUTE PROCESS. Impression dictated by: Juan Luis Brantley Jr., D.O. 04/06/2025 10:34 AM Dictation Location: [place] [address] Electronically authenticated by: [id number] Y Date: 04/06/2025 10:34
--- NOTE | 2025-04-06 10:03 | ED_ITS ---
HPI HPI - General Adult General Chief complaint: Upper Respiratory Infection Stated complaint: COUGH Time Seen by Provider: 04/06/25 09:55 Source: patient Mode of arrival: walk-in History of Present Illness HPI narrative: 49-year-old female presented to the emergency department for a cough that she has had for 3 months. It has been nonproductive. She has not had a fever. Related Data Home Medications ?Medication ?Instructions ?Recorded ?Confirmed albuterol sulfate 2.5 mg/3 mL mg 04/06/25 (0.083 %) solution for nebulization estradiol 1 mg tablet mg 04/06/25 hydrochlorothiazide 25 mg tablet mg 04/06/25 hydroxychloroquine 200 mg tablet mg PO 04/06/25 levothyroxine 75 mcg tablet mcg 04/06/25 olmesartan 40 mg tablet mg 04/06/25 pantoprazole 40 mg tablet,delayed mg PO 04/06/25 release Previous Rx's ?Medication ?Instructions ?Recorded benzonatate 100 mg capsule 100 mg PO TID PRN cough #20 caps 04/06/25 Allergies Allergy/AdvReac Type Severity Reaction Status Date / Time sulfamethoxazole (From Allergy Hives Verified 04/06/25 09:50 Bactrim) trimethoprim (From Bactrim) Allergy Hives Verified 04/06/25 09:50 Opioid HPI Opioid Management Most Recent Opioid Data: Last Pain Scale 8 Today, 09:59 Review of Systems ROS Narrative A ten point review of systems is negative except as noted above. PFSH PFSH Social History Little interest or pleasure in doing things: not at all Feeling down, depressed, or hopeless: not at all Exam Narrative Exam Narrative: Nurses note and vital signs reviewed General:The patient appears in no apparent distress.Patient is resting comfortably on cart and coughs occasionally. Skin:Warm, dry, no pallor noted.There is no rash noted. Head:Normocephalic, atraumatic Eye: Normal conjunctiva, no drainage Ears, Nose, Mouth, and Throat: oral mucosa is moist. Nares patent. Cardiovascular:Regular Rate and Rhythm Respiratory:Patient is in no distress, no accessory muscle use, lungs are clear to auscultation, no wheezing, rales or rhonchi Back:non-tender GI: Soft and nontender Musculoskeletal: The patient has no evidence of calf tenderness, no pitting edema, symmetrical pulses noted bilaterally Neurological:A&O, normal speech Psychiatric:Cooperative Constitutional Vital Signs, click to edit/add: Last Vital Signs Temp 98.7 F 04/06/25 09:53 Pulse 122 H 04/06/25 09:53 Resp 18 04/06/25 10:26 BP 149/87 H 04/06/25 09:53 Pulse Ox 96 04/06/25 10:26 O2 Del Method Room Air 04/06/25 09:53 Course Vital Signs Vital signs: Vital Signs Temperature 98.7 F 04/06/25 09:53 Pulse Rate 122 H 04/06/25 09:53 Respiratory Rate 18 04/06/25 09:53 Blood Pressure 149/87 H 04/06/25 09:53 Pulse Oximetry 95 04/06/25 09:53 Oxygen Delivery Method Room Air 04/06/25 09:53 Temperature 98.7 F 04/06/25 09:53 Pulse Rate 122 H 04/06/25 09:53 Respiratory Rate 18 04/06/25 10:26 Blood Pressure 149/87 H 04/06/25 09:53 Pulse Oximetry 96 04/06/25 10:26 Oxygen Delivery Method Room Air 04/06/25 09:53 Medical Decision Making MDM Narrative Medical decision making narrative: Chest x-ray per radiologist shows no acute findings. COVID test is positive, influenza is negative. The patient has had this cough for 3 months and certainly has not had COVID for 3 months. The cause of her chronic cough at this point is uncertain but the possibility that the olmesartan is causing it was discussed. She was prescribed Tessalon and will follow-up with her family doctor. Treatment diagnosis and follow-up were discussed with the patient and her . Differential Diagnosis Differential Diagnosis: Pneumonia, COVID, influenza, medication side effect Lab Data Lab results reviewed: Yes I reviewed the patient's lab results Labs: Lab Results 04/06/25 Range/Units 10:00 Influenza Type A Ag Negative Influenza Type B Ag Negative SARS-CoV-2 Ag (CV2AG) Positive A (NEGATIVE) Imaging Data Chest x-ray: Radiologist's impression: ITS Impressions Chest X-Ray 04/06/25 10:03 IMPRESSION: NO ACUTE PROCESS. Impression dictated by: Juan Luis Brantley Jr. DJamie 04/06/2025 10:34 AM Dictation Location: [facility]18 Electronically authenticated by: [id number] Y Date: 04/06/2025 10:34 Discharge Plan Discharge Chief Complaint: Upper Respiratory Infection Clinical Impression: COVID-19, Chronic cough Patient Disposition: Home, Self-Care Time of Disposition Decision: 10:49 Condition: Good Mode of Transportation: Private Vehicle Prescriptions / Home Meds: New benzonatate 100 mg capsule 100 mg PO TID PRN (Reason: cough) Qty: 20 0RF No Action albuterol sulfate 2.5 mg /3 mL (0.083 %) solution for nebulization levothyroxine 75 mcg tablet estradiol 1 mg tablet pantoprazole 40 mg tablet,delayed release (DR/EC) PO hydrochlorothiazide 25 mg tablet hydroxychloroquine 200 mg tablet PO olmesartan 40 mg tablet Print Language: [place] Instructions: COVID-19 (Coronavirus Disease 2019) (ED), Face Coverings (Masks) and COVID-19 (ED), How to Recover from COVID-19 at Home (ED) Referrals: BRISA THORNTON [Primary Care Provider, Family Practice] - 1 week
--- OUTSIDE RECORDS SUMMARY | 2025-04-06 10:23 | XMS_ITS | Encounter Summary ---
Author Organization [facility] Address [address] [place] [address] Care Team Providers Care Aviation Electrician Name Role Phone Karla Wong MD Primary Care Provider [phone] Encounter Details DateTypeDepartmentCare Team (Latest Contact Info)Pvdejyoopho86/10/2025Travel Social History Tobacco UseTypesPacks/DayYears UsedDateSmoking Tobacco: NeverSmokeless Tobacco: NeverAlcohol UseStandard Drinks/WeekCommentsYes0 (1 standard drink = 0.6 oz pure alcohol)caffeine: coffee, sodaPHQ-2AnswerDate RecordedPatient Health Questionnaire-2 [id number] and Gender Information ValueDate RecordedSex Assigned at BirthNot on fileLegal YbiYpjmeo56/15/2023 6:36 PM EDTGender IdentityNot on fileSexual OrientationNot on filedocumented as of this encounter Plan of Treatment Not on file documented as of this encounter Visit Diagnoses Not on filedocumented in this encounter Care Teams Team MemberRelationshipSpecialtyStart DateEnd Date Karla Wong MD [address] [facility] [address] [place] [address] PCP - GeneralFamily Medicine10/18/23documented as of this encounter
--- OUTSIDE RECORDS SUMMARY | 2025-04-06 10:23 | XMS_ITS | Encounter Summary ---
Author Organization [facility] Address [address] [place] [address] Care Team Providers Care Preventive Medicine Physician Name Role Phone Karla Wong MD Primary Care Provider [phone] Encounter Details DateTypeDepartmentCare Team (Latest Contact Info)Neveuryimfw05/09/2025Travel Social History Tobacco UseTypesPacks/DayYears UsedDateSmoking Tobacco: NeverSmokeless Tobacco: NeverAlcohol UseStandard Drinks/WeekCommentsYes0 (1 standard drink = 0.6 oz pure alcohol)caffeine: coffee, sodaPHQ-2AnswerDate RecordedPatient Health Questionnaire-2 [id number] and Gender InformationValueDate RecordedSex Assigned at BirthNot on fileLegal SexFemale 06/30/2022 6:36 PM EDTGender IdentityNot on fileSexual OrientationNot on file documented as of this encounter Plan of Treatment Not on file documented as of this encounter Visit Diagnoses Not on filedocumented in this encounter Care Teams Team MemberRelationshipSpecialtyStart DateEnd Date Karla Wong MD [address] [facility] [address] [place] [address] PCP - GeneralFamily Medicine10/18/23documented as of this encounter
--- OUTSIDE RECORDS SUMMARY | 2025-04-06 10:23 | XMS_ITS | Clinical Summary ---
Author Organization [facility] Address [address] [place] [id number] Care Team Providers Care Molding Room Supervisor Name Role Phone Karla Wong MD Primary Care Provider [phone] Allergies Active AllergyReactionsCriticalityNoted DateCommentsSulfamethoxazoleHives 08/17/2010 Medications MedicationSigDispense QuantityRefillsLast FilledStart DateEnd DateStatus levothyroxine (SYNTHROID) 75 mcg ORAL tablet Indications:Hypothyroidism (acquired)Take one(1) tablet daily. 30 Tab 11106/14/2009ctive olmesartan-hydrochlorothiazide (BENICAR HCT) 40-12.5 mg per tablet Take 1 tablet by mouth once daily.ctive Multivitamin capsule Take 1 capsule by mouth once daily.Active Active Problems ProblemNoted DateDiagnosed DateMucinous cystadenoma of ovary01/28/2014Struma ovarii and hseuyyaoo88/13/2014Hypothyroidism (acquired)04/13/2010PCOS (polycystic ovarian syndrome)04/13/2010 Family History Medical HistoryRelationCommentsAfib [Other]FatherHypertensionFatherThyroid Maternal GrandmotherHypertensionMotherCancerPaternal UncleleukemiaDiabetes Paternal UncleRelationStatusCommentsFatherMaternal GrandmotherMotherPaternal Uncle Social History Tobacco UseTypesPacks/DayYears UsedDateSmoking Tobacco: NeverSmokeless Tobacco: NeverAlcohol UseStandard Drinks/WeekCommentsYes0 (1 standard drink = 0.6 oz pure alcohol)socially or occasionalCommentsNoSex and Gender InformationValue Date RecordedSex Assigned at BirthNot on fileLegal WroKngizo98/02/2012 8:33 AM ESTGender IdentityNot on fileSexual OrientationNot on file Last Filed Vital Signs Vital SignReadingTime TakenCommentsBlood Ubrjsdwp893/7202/08/2018 11:44 AM EDT Wykth849802/08/2018 11:44 AM NFIChgggwaczdx19.9 ??C (98.5 ??F)02/08/2018 11:44 AM EDTRespiratory Awln7802 11:44 AM EDTOxygen Saturation--Inhaled Oxygen Concentration--Ntgpsx98 kg (200 lb 9.6 oz)02/08/2018 11:44 AM JZQLcvzdp126 cm (5' 8.5 )02/08/2018 11:44 AM EDTBody Mass Index30.0502/08/2018 11:44 AM EDT Plan of Treatment Health MaintenanceDue DateLast DoneCommentsAnxiety Ybudyrxll38/07/1992Depression Dxwksqzbv42/07/1992HIV Mgilkgdme86/07/1992DTaP,Tdap,Td Vaccine (1 - Tdap) 1992Hepatitis B Vaccine (1 of 3 - 19+ 3-dose series)1992Cervical Cancer Qsqftdlbc62/07/1995Mammogram Segberqnx41/07/2014CT Zxwskrngizvr95/07/2019 Cologuard (FIT-DNA)09/22/20189403Zclivyzrpkx56/07/2019Colorectal Cancer Screening 2018Fecal Occult Blood2018Lipid Doykmzjbv36/07/2019Sigmoidoscopy 2018Diabetes Djddfneja81, 05/21/2013, 09/18/2012, Additional history existsPneumococcal Vaccine: 50+ (1 of 1 - PCV)09/23/2023 Shingrix Vaccine (1 of 2)09/23/2023ovid-19 Vaccine (1 - 2024- season) 2024Influenza Vaccine (#1)2024RSV Vaccine (1 - 1-dose 75+ series) 2048Hepatitis C JlqhvrzzbTyjwrrhhu59/04/2011 Procedures Procedure NamePriorityDate/TimeAssociated DiagnosisCommentsCOMPREHENSIVE METABOLIC JZAVOZashntg17/24/2017 11:39 AM EDT Struma ovarii and carcinoid Hypothyroidism (acquired) HEP REMOTE PANEL GGBogsnkj65/04/2011 9:58 AM EDT Elevated liver enzymes from Last 3 Months or Most Recently Relevant to Health Maintenance Results * (ABNORMAL) COMP METABOLIC PANEL (02/08/2017 11:39 AM EDT)ComponentValueRef RangeTest MethodAnalysis TimePerformed AtPathologist SignatureProtein, Total 8.06.3 - 8.0 g/dL02/09/2017 2:55 AM [facility] LABORATORYAlbumin 4.43.9 - 4.9 g/dL02/09/2017 2:55 AM [facility] LABORATORYCalcium 8.88.5 - 10.2 mg/dL02/09/2017 2:55 AM [facility] Bilirubin, Total0.30.2 - 1.3 mg/dL02/09/2017 2:55 AM [facility] LABORATORYAlkaline Eoneqrwfkxb9195 - 117 U/L1 2:55 AM [facility] QHORNPAEWJRAH2167 - 35 U/L1 2:55 AM [facility] GZGGBUCQIDNvzjxxi075(H)74 - 99 mg/dL02/09/2017 2:55 AM [facility] MA[facility] LABORATORYComment: The [place] Diabetes [employer] (ADA) provides guidance for cutoff values for fasting glucose and random glucose. The ADA defines fasting as no caloric intake for at least 8 hours. Fasting plasma glucose results between 100 to 125 mg/dL indicate increased risk for diabetes (prediabetes). Fasting plasma glucose results greater than or equal to 126 mg/dL meet the criteria for diagnosis of diabetes. In the absence of unequivocal hyperglycemia, results should be confirmed by repeat testing. In a patient with classic symptoms of hyperglycemia or hyperglycemic crisis, random plasma glucose results greater than or equal to 200 mg/dL meet the criteria for diagnosis of diabetes. Reference: Standards of Medical Care in Diabetes 2016, [place] [employer]. Diabetes Care. 2016.39(Suppl 1). BIS095 - 21 mg/dL02/09/2017 2:55 AM [facility] Creatinine0.850.58 - 0.96 mg/dL02/09/2017 2:55 AM [facility] HZZODYCDMBMclehw908142 - 144 mmol/L1 2:55 AM [facility] LABORATORYPotassium3.73.7 - 5.1 mmol/L1 2:55 AM [facility] FKTVXIHYNTMoghguny58711 - 105 mmol/L1 2:55 AM [facility] JUODKLPENVVC81223 - 30 mmol/L1 2:55 AM [facility] LABORATORYAnion Ozn962 - 18 mmol/L1 2:55 AM [facility] MNGXHKGQLPLQU634 - 38 U/L1 2:55 AM [facility] eGFR->6002/09/2017 2:55 AM [facility] eGFR-All Other Races>60.02/09/2017 2:55 AM [facility] Comment: eGFR (Estimated GFR) Units of measure: mL/min/1.73 meters squared eGFR is derived from the reexpressed MDRD Study equation using the following parameters: serum creatinine, age, gender and race. The creatinine assay has been calibrated to be traceable to IDMS. An eGFR <60 mL/min/1.73m2 for >3 months is consistent with chronic kidney disease. Refer to KDOQI guidelines for clinical interpretation. In patients with unstable renal function, e.g. those with acute kidney injury, the eGFR may not accurately reflect actual GFR. Specimen (Source)Anatomical Location / LateralityCollection Method / Volume Collection TimeReceived TimeBlood specimen (specimen)BLOOD SPECIMEN / Unknown 02/08/2017 11:39 AM EDT1 11:41 AM EDT Narrative Authorizing ProviderResult TypeResult StatusMinjamison MAN-CLABORATORYFinal ResultPerforming OrganizationAddressCity/State/ZIP CodePhone Number [facility] [address] [place] [address] * HEP REMOTE PANEL BL (02/19/2011 9:58 AM EDT)ComponentValueRef RangeTest Method Analysis TimePerformed AtPathologist SignatureHep B Core Ab, TotalNegative NEGATCLEVELAND CLINIC MAIN LABORATORYHep C Antibody IANegativeNEGATCCLEVELAND CLINIC [facility] MAIN LABORATORYHBsAgNegativeNEGATCLEVELAND [facility] MAIN LABORATORYHep B Surface Ab, QualNegativeNEGATCCLEVELAND CLINIC [facility] MAIN LABORATORYComment: ? A negative Hepatitis B Surface Antibody is indicative of: 1)no prior exposure to HBV, 2)lack of antibody response to an acute or chronic HBV infection, 3)lack of antibody response to HBV vaccination, or, 4)loss of immunity that followed either vaccination or infection. Specimen (Source)Anatomical Location / LateralityCollection Method / Volume Collection TimeReceived TimeBlood specimen (specimen)BLOOD SPECIMEN / Unknown 02/19/2011 9:58 AM EDT104/21/2010 10:03 AM EDT Narrative Authorizing ProviderResult TypeResult StatusFeyrotammy Nayak MDLABORATORYEdited Performing OrganizationAddressCity/State/ZIP CodePhone Number [facility] [address] [place] [address] from Last 3 Months or Most Recently Relevant to Health Maintenance Care Teams Team MemberRelationshipSpecialtyStart DateEnd Date Karla Wong MD PCP - GeneralFamily Xclysmjp00/13/14
--- OUTSIDE RECORDS SUMMARY | 2025-04-06 10:23 | XMS_ITS | Clinical Summary ---
Author Organization [facility] Address [address], [address] [place] [address] Care Team Providers Care Electronic Integrated Systems Mechanic Name Role Phone Karla Wong MD Primary Care Provider [phone] Allergies Active AllergyReactionsCriticalityNoted DateComments Sulfamethoxazole-HgvmsstwauroBldfh18/19/2024 Medications MedicationSigDispense QuantityRefillsLast FilledStart DateEnd DateStatus hydroCHLOROthiazide (HYDRODIURIL) 25 MG tablet Take 1 tablet by mouth dailyActive levothyroxine (SYNTHROID) 75 MCG tablet Take 1 tablet by mouth DailyActive estradiol (ESTRACE) 1 MG tablet Take 1 tablet by mouth dailyActive omeprazole (PRILOSEC) 20 MG delayed release capsule Take 2 capsules by mouth dailyActive olmesartan (BENICAR) 40 MG tablet Take 1 tablet by mouth dailyActive Multiple Vitamins-Minerals (CENTRUM/CERTA-ALLEGRA WITH MINERALS ORAL) solution Take 15 mLs by mouth dailyActive hydroxychloroquine (PLAQUENIL) 200 MG tablet Take 1 tablet by mouth dailyActive Active Problems ProblemNoted DateDiagnosed DateAntral /19/2024Duodenal adenoma 12/30/2023 Social History Tobacco UseTypesPacks/DayYears UsedDateSmoking Tobacco: NeverSmokeless Tobacco: Never Tobacco Cessation:Counseling Given: Not Answered Alcohol UseStandard Drinks/WeekCommentsYes0 (1 standard drink = 0.6 oz pure alcohol)occCommentsNoSex and Gender InformationValueDate RecordedSex Assigned at XqfikRhqokr04/12/2024 7:01 PM EDTLegal KbzEacczr13/13/2024 11:23 AM EDTGender BkinmwrlWfqhrw63/12/2024 7:01 PM EDTSexual OrientationStraight 01/28/2024 7:01 PM EDT Last Filed Vital Signs Vital SignReadingTime TakenCommentsBlood Ghqdzlly072/7309 10:50 AM EDT Tvxyj0895 10:50 AM QMMUhsxlginjnd95.7 ??C (98 ??F)01/05/2024 9:03 AM EDT Respiratory Lsdj419001/05/2024 10:50 AM EDTOxygen Dmhanqcilp26%01/05/2024 10:50 AM EDTInhaled Oxygen Concentration--Swpfip18.3 kg (210 lb)01/05/2024 9:03 AM EDT Bhbefe249.3 cm (5' 11 )01/05/2024 9:03 AM EDTBody Mass Index29.2909 9:03 AM EDT Plan of Treatment Health MaintenanceDue DateLast DoneCommentsDepression Evjywn9209/22/1985HIV screen 1988Hepatitis C jvygjt3409/23/1991Hepatitis B vaccine (1 of 3 - 19+ 3-dose series)09/22/19923125Yimfkq67/07/4137Byaslffarrc86/07/2019Colorectal Cancer Screen 2018FIT/FOBT: Average risk2018Fecal-DNA (Cologuard): Average risk 2018Sigmoidoscopy/CT rofztfjhdbvq76/07/2019Pneumococcal 50+ years Vaccine (1 of 1 - PCV)09/23/2023Shingles vaccine (1 of 2)09/23/2023reast cancer screen /10/2021, 12/31/2019, 05/19/2018, Additional history existsFlu vaccine (#1), 02/18/2016COVID-19 Vaccine (1 - season)2024DTaP/Tdap/Td vaccine (2 - Td or Tdap)/ Hepatitis A vaccineAged OutNo longer eligible based on patient's age to complete this topicHib vaccineAged OutNo longer eligible based on patient's age to complete this topicMeningococcal (ACWY) vaccineAged OutNo longer eligible based on patient's age to complete this topicMeningococcal B vaccineAged OutNo longer eligible based on patient's age to complete this topicPolio vaccineAged OutNo longer eligible based on patient's age to complete this topic Insurance [place] [id number] Advance Directives * Full Code (Latest Code Status on File) Date ActivatedDate InactivatedComments01/05/2024 8:52 AM01/05/2024 1:09 PM Care Teams Team MemberRelationshipSpecialtyStart DateEnd Date Karla Wong MD [address] [facility] [address] [place] [address] PCP - GeneralFamily Medicine01/05/24
--- OUTSIDE RECORDS SUMMARY | 2025-04-06 10:23 | XMS_ITS | Patient Health Record ---
Author Organization [facility] in [place] Address [address] [place] [address] Care Team Providers Care Wire Mesh Gate Assembler Name Role Phone Karla Wong MD Primary Care Provider Unavailabl e Provider, Lab Unavailable [phone] Avelino Conway DO Unavailable [phone] Saul Truong Unavailable [phone] Allergies Allergen (clinical drug ingredient) Drug/Non Drug Allergy documented on EMR Reaction Allergy Type Onset Date Status sulfamethoxazole / trimethoprim Bactrim Unknown Drug Allergy ActivehydroxychloroquineHydroxychloroquine Sulfategeneric causes itchingDrug AllergyActive Results Component Value Reference Range Notes ANTI - DNA, DOUBLE STRANDED* Reviewed date:10/29/2024 12:47:40 PM Interpretation: Performing Lab:[facility], [address] [place], [address] [phone] Notes/Report: LAV,URINE,2SST FACILITY: [facility] [id number] ANTI ds DNA <0.6 (0.0 - 15.0) IU/ML CH 50 - COMPLEMENT, TOTAL Reviewed date:10/27/2024 12:22:02 PM Interpretation: Performing Lab:CB, [facility] [address], Emir [id number] Teofilo Cain Notes/Report: FASTING:UNKNOWN FASTING: UNKNOWNCK (CPK) Reviewed date:10/29/2024 12:47:56 PM Interpretation: Performing Lab:[facility], [address] [place], [address] Notes/Report: LAV,URINE,2SST FACILITY: [facility] [id number](30 - 135) U/MARICARMEN (REFLEX URINALYSIS TO CULTURE) Reviewed date:10/29/2024 12:47:47 PM Interpretation: Performing Lab:[facility], [address] [place], [address] Notes/Report: LAV,URINE,2SST FACILITY: [facility] [id number](P YEL - L AMB)CHARACTERCLEAR(CLEAR - HAZY)SP. GRAVITY 1.020(1.001 - 1.035)PH6.0(5.0 - 9.0)ALBUMINNEG(NONE - NEG) MG/DLGLUCOSENEG(NEG) MG/DLKETONESNEG(NEG) MG/DLBILIRUBINNEG(NEG)UROBILINOGEN0.2(0.2 - <2.0) MG/DL OCCULT BLD.NEG(NEG)NITRITENEG(NEG)LEUK. ESTERASENEG(NEG)UR. WBCNONE(0 - 4) /HPF UR. RBC0-2(0 - 2) /HPFSQUAMOUS EPINONE(NONE - OCC) /HPFBACTERIANONE(NONE - OCC) /HPFMUCUSOCC(NONE - OCC) /HPFREFLEX CULTURE ADDEDNO()SED RATE and CRP Reviewed date:10/29/2024 12:47:51 PM Interpretation: Performing Lab:[facility], [address] [place], [address] Notes/Report: LAV,URINE,2SST FACILITY: [facility] [id number] RATE WEST.19(0 - 25) MM/HRCRP EXTENDED RANGE2.32(0.00 - 5.00) MG/LC3 and C4 Reviewed date:10/29/2024 12:48:00 PM Interpretation: Performing Lab:[facility], [address] [place], [address] Notes/Report: LAV,URINE,2SST FACILITY: [facility] [id number] 3142(88 - 165) MG/CORNELL 421(14 - 44) MG/DLMICROALBUMIN w DIRECTOR CRAFT CENTER RATIO Reviewed date:10/25/2024 09:13:06 PM Interpretation: Performing Lab:[facility], [address] [place], [address] Notes/Report: REF RANGE : ALB/CREAT RATIO NORMAL = 0 - 13 MG/G CREAT BORDERLINE = 14 - 30 MG/G CREAT ABNORMAL = >30 MG/G CREAT LAV,URINE,2SST FACILITY: [facility] [id number] RJOBWVXXMD34.5() MG/DLMICRO ALB, UR0.60(0.0 - 1.70) MG/DL MICROALBUMIN = LESS THAN 0.60 MG/DL MICROALBUMIN MIN DETECTION IS 0.60 MG/DL. ALB/CREAT RATIO6.3(0.0 - 30.0) MG/G CRMTX PANEL (CBC, ALB,ALT, AST, ALK ,CREA w/GFR CKD-EPI)) Reviewed date:10/29/2024 12:47:34 PM Interpretation: Performing Lab:[facility], [address] [place], [place], [id number] Notes/Report: LAV,URINE,2SST FACILITY: [facility] [id number](3.80 - 10.60) x10^0sgFHZSRTBKER15.8(12.0 - 16.0) G/DL MGZNRBJRJR60.6(37.0 - 47.0) %MCH30.2(27.0 - 33.0) TUTQRT63.0(30.0 - 37.0) G/DL ALBUMIN5.0(3.5 - 5.0) G/DLALT (SGPT)30(1 - 35) U/LAST (SGOT)28(15 - 46) U/LALK PHOS69(38 - 126) U/LCREATININE, BLOOD0.73(0.52 - 1.04) MG/DLGFR by CKD-EPI99.5 (60.0) ML/M1.7RBC4.57(4.20 - 5.40) x10^8chHMF82.8(81.0 - 99.0) psAVH595(130 - 400) x10^3ulC3 and C4 Reviewed date:04/26/2024 05:51:52 PM Interpretation: Performing Lab:[facility], [address] [place], [address] Notes/Report: 1LAV 1S 1U FACILITY: [facility] [id number] 3149(88 - 165) MG/CORNELL 425(14 - 44) MG/DLSED RATE and CRP Reviewed date:04/26/2024 05:12:08 AM Interpretation: Performing Lab:[facility], [address] [place], [address] Notes/Report: 1LAV 1S 1U FACILITY: [facility] [id number] RATE WEST.27(0 - 25) MM/HRCRP EXTENDED RANGE2.60(0.00 - 5.00) MG/L VITAMIN D, 25 LEVEL (TOTAL) Reviewed date:04/26/2024 05:51:50 PM Interpretation: Performing Lab:[facility], [address] [place], [address] Notes/Report: * * * VITAMIN D, 25 HYDROXY GENERAL GUIDELINE * * * DEFICIENCY = < OR = 20.0 NG/ML INSUFFICIENCY = 20.1 - 29.9 NG/ML SUFFICIENCY = 30.0 - 100.0 NG/ML TOXICITY = > 100.1 NG/ML 1LAV 1S 1U FACILITY: [facility] [id number] D, 2562.9(30.0 - 100.0) NG/MLMTX PANEL (CBC, ALB,ALT, AST, ALK and CREA) Reviewed date:04/27/2024 11:09:15 AM Interpretation: Performing Lab:[facility], [address] [place], [address] Notes/Report: 1LAV 1S 1U FACILITY: [facility] [id number](3.80 - 10.60) x10^7ptYIE2.45(4.20 - 5.40) x10^3fsSRINAXCSUB13.3 (12.0 - 16.0) G/FHQLRWAHGANX37.4(37.0 - 47.0) %MCV88.5(81.0 - 99.0) flMCH29.9 (27.0 - 33.0) YJIUKO28.8(30.0 - 37.0) G/FIHBW302(130 - 400) x10^9lnYFGLADM3.7 (3.5 - 5.0) G/DLALT (SGPT)50(1 - 35) U/LAST (SGOT)27(15 - 46) U/LALK JQFO669(38 - 126) U/LCREATININE, BLOOD0.83(0.52 - 1.04) MG/DLGFR-NON AFRIC-AMER72.8(60.0 - 115.8) ML/M1.7GFR- AMER88.0(60.0 - 140.1) ML/M1.7UA (REFLEX URINALYSIS TO CULTURE) Reviewed date:04/26/2024 05:51:58 PM Interpretation: Performing Lab:[facility], [address], [place], [address] Notes/Report: 1LAV 1SST 1U FACILITY: [facility] [id number](P YEL - L AMB)CHARACTERCLEAR(CLEAR - HAZY)SP. GRAVITY1.014 (1.001 - 1.035)PH6.0(5.0 - 9.0)ALBUMINNEG(NONE - NEG) MG/DLGLUCOSENEG(NEG) MG/DL KETONESNEG(NEG) MG/DLBILIRUBINNEG(NEG)UROBILINOGEN0.2(0.2 - <2.0) MG/DLOCCULT BLD.NEG(NEG)NITRITENEG(NEG)LEUK. ESTERASENEG(NEG)UR. WBC0-4(0 - 4) /HPFUR. RBC 0-2(0 - 2) /HPFSQUAMOUS EPIOCC(NONE - OCC) /HPFBACTERIAOCC(NONE - OCC) /HPFMUCUS OCC(NONE - OCC) /HPFREFLEX CULTURE ADDEDNO()ANTI - DNA, DOUBLE STRANDED* Reviewed date:04/26/2024 05:52:01 PM Interpretation: Performing Lab:[facility], [address] [place], [place], [id number] Notes/Report: 1LAV 1SST 1U FACILITY: [facility] [id number] ds DNA0.8(0.0 - 15.0) IU/ML Reason For Referral No Information Medications Medication SIG (Take, Route, Frequency, Duration) Notes Start Date End Date Status Plaquenil 200 MG TAKE 1 TABLET WITH F OOD OR MILK TWO TIMES A DAY; Duration: 90 make sure NOT generic ActiveOlmesartan Medoxomil 40 MG1 tablet Orally Once a day; Duration: 30 day(s) ActiveOmeprazole 40 MGOrally Once a kwkLxx-LvicgwBipxrwLoo-XbdufnSevhsczh Potassium-HCTZ 100-25 MG1 tablet Orally Once a day; Duration: 30 day(s) Not-TakinghydroCHLOROthiazide 25 MGOrally Once a dayActiveMinocycline HCl 50 MG1 capsule Orally BID; Duration: 30 daysok to switch to tablet if less expensive 09/19/2019Not-TakingLosartan PzovnbesxCjs-UlxnlgFkwclghkzaZie-Vpusqg Hydroxychloroquine Sulfate 200 MGTAKE 1 TABLET WITH FOOD OR MILK TWO TIMES A DAY 90; Duration: 30ActiveamLODIPine Besylate 5 MGOrally Once a dayNot-TakingZyrTEC Allergy 10 MGOrally Once a dayNot-TakingAZO Cranberry 250-30 MGOrally Daily Not-TakingPremarin 0.625 MGOrally Once a dayActivepredniSONE 5 MGtake 2 tabs/day x 1 wk, then 1 1/2 tabs/day x 1 wk, then 1 tab/day x 1 wk, then 1/2 tab/day x 1 wk Orally Once a day; Duration: 30 daysPRN flare04/04/2020Not-TakingSynthroid 75 MCGOrally Once a dayActiveVitamin D3 125 MCG (5000 UT)Orally Once a day Not-Taking Immunizations Vaccine Route Administration Date Status Comme nts SARS-COV-2 (COVID 19 Moderna - 100mcg/0.5mL) Unknown 05/22/2020 Administered Social History Tobacco Use: Social History Observation Description Date Details (start date - stop date) Never Smoker NA - NA Living Will Question Answer Notes Living Will Yes, patient has a living will, but it is not on file Tobacco Control (Standard) Question Answer Notes Tobacco use: Nonsmoker Section Notes: social drinker; nonsmoker ( 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 Gomez, dr. Diaz, Dr. 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 Gomez, dr. Diaz, Dr. 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 Gomez, dr. Diaz, Dr. Wong, Dr. 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 Gomez, dr. Diaz, Dr. Wong, Dr. 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 Gomez, dr. Diaz, Dr. Wong, Dr. 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 Gomez, dr. Diaz, Dr. Wong, Dr. Arias) Living will= yes social drinker; nonsmoker ( disability attorney, Lang, Alejo, Langerfer [employer] Meek, personal injury, and running for presiding judge), 3 children (17, 15, 13, as of ) 1 jluis Ibrahim in [employer] as of 2021 and desires [employer] 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 Diaz, Juana Wong, emilie guadarrama, joni moran SWITCHBOARD WIRER) social drinker, minimal; nonsmoker ( Eddie disability attorney, Lang, Alejo, [employer]angerfer [employer] Meek, personal injury, municipal jugdge in [place] ; coaches [place] [employer]), 3 children ( as of ) 1 jluis do decided to not walk onto [employer] 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 Gomez, dr. Diaz, Dr. Wong, Dr. 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 Gomez, dr. Diaz, Dr. 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 Gomez, dr. Diaz, Dr. Wong) Problems Problem Type SNOMED Code ICD Code Onset Dates Problem Status W/U Status Risk Notes Problem Information temporarily unavailable [place] eratosis (Q82.8) ActiveconfirmedProblemInformation temporarily unavailableLeukopenia (D72.819) ActiveconfirmedProblemInformation temporarily unavailableGeneralized osteoarthritis of multiple sites (M15.9)ActiveconfirmedProblemInformation temporarily unavailableSLE (systemic lupus erythematosus) (M32.9)Activeconfirmed ProblemInformation temporarily unavailablePlantar fasciitis of left foot (M72.2) ActiveconfirmedProblemInformation temporarily unavailableHistory of immunosuppression (Z92.25)ActiveconfirmedProblemInformation temporarily unavailableSjogren''s syndrome with keratoconjunctivitis sicca (M35.01)Active confirmedProblemInformation temporarily unavailableAcne rosacea, papular type (L71.8)Activeconfirmed Vital Signs Heart Rate 76 /min 10/25/2024 Respiratory Rate12 /min10/25/2024lood pressure hpggiflhu93 mm Hg10/25/2024 Qpqlrl55 in10/25/2024lood pressure mm Hg10/25/20241670Fvxmyw009 lbs 10/25/2024BMI29.29 kg/m210/25/2024 Encounters Encounter Location Date Provider Diagnosis Rheumatology [facility] [address] [place] [phone] 01/07/2025 Avelino Conway Rheumatology [facility] [place] [phone] 04/20/2024mauricio Unger (systemic lupus erythematosus) M32.9 ; Plantar fasciitis of left foot M72.2 ; Sjogren''s syndrome with keratoconjunctivitis sicca M35.01 ; Encounter for long-term (current) use of other medications Z79.899 ; Fatigue, unspecified type R53.83 ; Leukopenia D72.819 ; Carcinoid tumor D3A.00 ; ALT (SGPT) level raised R74.01 ; Generalized osteoarthritis of multiple sites M15.9 ; Left wrist fracture,sequela S62.102S ; History of immunosuppression Z92.25 and Encounter for vitamin deficiency screening Z13.21 [id number] [place] [address] 5Alexis MullikinSLE (systemic lupus erythematosus) M32.9 ; Sjogren''s syndrome with keratoconjunctivitis sicca M35.01 ; Plantar fasciitis of left foot M72.2 ; Leukopenia D72.819 ; Carcinoid tumor D3A.00 ; ALT (SGPT)level raised R74.01 ; Generalized osteoarthritis of multiple sites M15.9 and [facility], sequela S62.102[facility] [address] [place], [place] [address]/06/2024[facility] [address] [place], [place] [address]/25/2024Lab Provider Assessments Encounter Date Diagnosis (ICD Code) Assessment Notes Treatment Notes Treatment Clinical Notes Section Notes 04/20/2024 SLE (systemic lupus erythematosu s) (ICD-10 - M32.9) Anne is an extremely pleasant, but stoic, 48yo white female, - Overall rheum impression = SLE, diagnosed 2019 with good serologic/lab evidence, (+) SRIRAM 1: 640 speckled, high titer RF, SSA, MANAGER CARDIOLOGY, low C4, leukopenia, elevated ESR/CRP; rash suspicious for cutaneous lupus, prior photosensitivity, sulfa allergy, polyarthralgias, inflammatory arthritis (swelling, stiffness); 2nd sjogrens with SICCA; monitor for RA/SLE ('Rhupus') overlap with (+) CCP mildly elevated, but plain films with NO inflammatory arthritis radiographic changes, Comorbid carcinoid tumor, thyroid disease. Complicated by prior ALT elevation , fatty liver Hx of L plantar fasciitis + OA L wrist fracture 2023 current SLE disease activity = suspect remission. NO synovitis or active rash; (-) ESR/CRP PLAN: -OA; status = STABLE --wgt loss, low impact exercise - -ALT elevation; status = STABLE --trend, (-) viral hep panel --low threshold to ref to GI --avoid hepatotoxins, excessive alcohol --RUQ US borderline diffuse fatty infiltration --critical for WFPB diet which Man counseled her initially 61Wyw85 and again 13Ytk95 --advised 85Cll00, vit E 400 --Sp ANDERSON, status post GB surgery - -SLE; status = STABLE --reiterated dz process, complications/comorbidities --UPDATE periodic update SLE dz activity markers --DMARDs options: MTX (ok stopping alcohol and had hysterectomy, though ALT elevation and fatty liver) VS arava; avoid SSZ due to sulfa allergy; imuran>MMF/benlysta (if more SLE activity), VS TNFi if more inflammatory arthritis clinically or radiographically --flares: restart low dose prednisone 10mg taper by 1/2tab = 2.5mg weekly; counseled on risk/benefits, including but not limited to diabetes, osteoporosis, etc --ca screening: counseled patient 63Qbc15 to ensure she is UTD age/sex appropriate routine cancer screening - -CONTINUE HCQ/plaquenil 200MG BID (started ); Avery, with sue MONTIEL, --last retinal screening = ; pt stated and she will go - -Reiterated patient about risk/benefits, including but not limited to retinal toxicity (loss of vision), and importance of regular retinal tox screening q6- 12mos, or else risk loss of vision, cytopenias, hepatotoxicity, cardiomyopathy, etc - -of note, she has itching on generic hydroxychloroquine but not brand name plaquenil -- UPDATE basic tox labs --Hx leukopenia, if continues, and discordant to SLE disease activity -- low threshold to contact heme/onc, Jordan Sullivan for her carcinoid - - seen , with no heme/onc concern per Laurie, would consider bone marrow biopsy but not at this time - --plantar fasciitis; status = STABLE --*establish care with 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 -- ORDER DEXA - RTC 4-6mos or sooner PRN (ok to book with JENISE Truong routinely and periodically physician) - Medical decision making: level 4. multiple chronic conditions addressed; medication toxicity monitoring (plaquenil, notable attention to CBC/liver labs and retinal toxicity); lab, clinical, imaging monitoring for autoimmune disease activity and end organ involvement 04/20/2024Plantar fasciitis of left foot (ICD-10 - M72.2) Anne is an extremely pleasant, but stoic, 48yo white female, - Overall rheum impression = SLE, diagnosed 2019 with good serologic/lab evidence, (+) SRIRAM 1: 640 speckled, high titer RF, SSA, MANAGER CARDIOLOGY, low C4, leukopenia, elevated ESR/CRP; rash suspicious for cutaneous lupus, prior photosensitivity, sulfa allergy, polyarthralgias, inflammatory arthritis (swelling, stiffness); 2nd sjogrens with SICCA; monitor for RA/SLE ('Rhupus') overlap with (+) CCP mildly elevated, but plain films with NO inflammatory arthritis radiographic changes, Comorbid carcinoid tumor, thyroid disease. Complicated by prior ALT elevation , fatty liver Hx of L plantar fasciitis + OA L wrist fracture 2023 current SLE disease activity = suspect remission. NO synovitis or active rash; (-) ESR/CRP PLAN: -OA; status = STABLE --wgt loss, low impact exercise - -ALT elevation; status = STABLE --trend, (-) viral hep panel --low threshold to ref to GI --avoid hepatotoxins, excessive alcohol --RUQ US borderline diffuse fatty infiltration --critical for WFPB diet which Man counseled her initially 63Cvv75 and again 67Lts05 --advised 64Mrb81, vit E 400 --Sp ANDERSON, status post GB surgery - -SLE; status = STABLE --reiterated dz process, complications/comorbidities --UPDATE periodic update SLE dz activity markers --DMARDs options: MTX (ok stopping alcohol and had hysterectomy, though ALT elevation and fatty liver) VS arava; avoid SSZ due to sulfa allergy; imuran>MMF/benlysta (if more SLE activity), VS TNFi if more inflammatory arthritis clinically or radiographically --flares: restart low dose prednisone 10mg taper by 1/2tab = 2.5mg weekly; counseled on risk/benefits, including but not limited to diabetes, osteoporosis, etc --ca screening: counseled patient 64Ixv21 to ensure she is UTD age/sex appropriate routine cancer screening - -CONTINUE HCQ/plaquenil 200MG BID (started ); Avery, with sue MONTIEL, --last retinal screening = ; pt stated and she will go - -Reiterated patient about risk/benefits, including but not limited to retinal toxicity (loss of vision), and importance of regular retinal tox screening q6- 12mos, or else risk loss of vision, cytopenias, hepatotoxicity, cardiomyopathy, etc - -of note, she has itching on generic hydroxychloroquine but not brand name plaquenil -- UPDATE basic tox labs --Hx leukopenia, if continues, and discordant to SLE disease activity -- low threshold to contact heme/onc, Jordan Sullivan for her carcinoid - - seen , with no heme/onc concern per Laurie, would consider bone marrow biopsy but not at this time - --plantar fasciitis; status = STABLE --*establish care with Nitin bending frame operator at [facility] --bear, wgt loss - -L wrist fracture ; status = ?STABLE --ortho, f/u [place]. -- ORDER DEXA - RTC 4-6mos or sooner PRN (ok to book with JENISE Truong routinely and periodically physician) - Medical decision making: level 4. multiple chronic conditions addressed; medication toxicity monitoring (plaquenil, notable attention to CBC/liver labs and retinal toxicity); lab, clinical, imaging monitoring for autoimmune disease activity and end organ involvement 10/25/2024SLE (systemic lupus erythematosus) (ICD-10 - M32.9) Anne is an extremely pleasant, but stoic, 49yo white female, - Overall rheum impression = SLE, diagnosed 2019 with good serologic/lab evidence, (+) SRIRAM 1: 640 speckled, high titer RF, SSA, MANAGER CARDIOLOGY, low C4, leukopenia, elevated ESR/CRP; rash suspicious for cutaneous lupus, prior photosensitivity, sulfa allergy, polyarthralgias, inflammatory arthritis (swelling, stiffness); 2nd sjogrens with SICCA; monitor for RA/SLE ('Rhupus') overlap with (+) CCP mildly elevated, but plain films with NO inflammatory arthritis radiographic changes, Comorbid carcinoid tumor, thyroid disease. Complicated by ALT elevation, fatty liver Hx of L plantar fasciitis + OA L wrist fracture 2023 current SLE disease activity = suspect remission. NO synovitis or active rash PLAN: -OA; status = STABLE --wgt loss, low impact exercise - -ALT elevation; status = ?STABLE --trend, (-) viral hep panel --low threshold to ref to GI --avoid hepatotoxins, excessive alcohol --RUQ US borderline diffuse fatty infiltration --critical for WFPB diet which Man counseled her initially 46Wqw93 and again 41Rckj66/ --advised 53Ihhj33/66Oin59, vit E 400 IUs per day --Sp ANDERSON, status post GB surgery - -SLE; status = STABLE --reiterated dz process, complications/comorbidities --UPDATE periodically SLE dz activity markers --DMARDs options: MTX (ok stopping alcohol and had hysterectomy, though ALT elevation and fatty liver) VS arava; avoid SSZ due to sulfa allergy; imuran>MMF/benlysta (if more SLE activity), VS TNFi if more inflammatory arthritis clinically or radiographically --flares: restart low dose prednisone 10mg taper by 1/2tab = 2.5mg weekly; counseled on risk/benefits, including but not limited to diabetes, osteoporosis, etc --CA screening: counseled patient [id number] to ensure she is UTD age/sex appropriate routine cancer screening -CONTINUE HCQ/plaquenil 200MG BID (started ); [place], with sue MONTIEL, --last retinal screening = *see patient docs --Reiterated patient about risk/benefits, including but not limited to retinal toxicity (loss of vision), and importance of regular retinal tox screening q6- 12mos, or else risk loss of vision, cytopenias, hepatotoxicity, cardiomyopathy, etc --of note, she has itching on generic hydroxychloroquine but NOT Brand Name Plaquenil - --Hx leukopenia, if continues and discordant to SLE disease activity -- low threshold to contact heme/onc, Jordan Sullivan for her carcinoid --seen , with no heme/onc concern per Laurie, would consider bone marrow biopsy but not at this time - --plantar fasciitis; status = STABLE --*establish care with Nitin bending frame operator at [facility] --stretches, wgt loss - -L wrist fracture ; status = ?STABLE --ortho, f/u [place]. --Ordered DEXA to be completed as of - RTC 4-6mos or sooner PRN (ok to book with JENISE Truong routinely and periodically physician) - Medical decision making: level 4. multiple chronic conditions addressed; medication toxicity monitoring (plaquenil, notable attention to CBC/liver labs and retinal toxicity); lab, clinical, imaging monitoring for autoimmune disease activity and end organ involvement 10/25/2024Sjogren''s syndrome with keratoconjunctivitis sicca (ICD-10 - M35.01) Anne is an extremely pleasant, but stoic, 49yo white female, - Overall rheum impression = SLE, diagnosed 2019 with good serologic/lab evidence, (+) SRIRAM 1: 640 speckled, high titer RF, SSA, [employer], low C4, leukopenia, elevated ESR/CRP; rash suspicious for cutaneous lupus, prior photosensitivity, sulfa allergy, polyarthralgias, inflammatory arthritis (swelling, stiffness); 2nd sjogrens with SIC[facility]; monitor for RA/SLE ('Rhupus') overlap with (+) CCP mildly elevated, but plain films with NO inflammatory arthritis radiographic changes, Comorbid carcinoid tumor, thyroid disease. Complicated by ALT elevation, fatty liver Hx of L plantar fasciitis + OA L wrist fracture 2023 current SLE disease activity = suspect remission. NO synovitis or active rash PLAN: -OA; status = STABLE --wgt loss, low impact exercise - -ALT elevation; status = ?STABLE --trend, (-) viral hep panel --low threshold to ref to GI --avoid hepatotoxins, excessive alcohol --RUQ US borderline diffuse fatty infiltration --critical for WFPB diet which Man counseled her initially [id number] and again [id number]/[id number] --advised 31Nksm02/19Bhh40, vit E 400 IUs per day --Sp ANDERSON, status post GB surgery - -SLE; status = STABLE --reiterated dz process, complications/comorbidities --UPDATE periodically SLE dz activity markers --DMARDs options: MTX (ok stopping alcohol and had hysterectomy, though ALT elevation and fatty liver) VS arava; avoid SSZ due to sulfa allergy; imuran>MMF/benlysta (if more SLE activity), VS TNFi if more inflammatory arthritis clinically or radiographically --flares: restart low dose prednisone 10mg taper by 1/2tab = 2.5mg weekly; counseled on risk/benefits, including but not limited to diabetes, osteoporosis, etc --CA screening: counseled patient [id number] to ensure she is UTD age/sex appropriate routine cancer screening -CONTINUE HCQ/plaquenil 200MG BID (started ); [place], with sue MONTIEL, --last retinal screening = *see patient docs --Reiterated patient about risk/benefits, including but not limited to retinal toxicity (loss of vision), and importance of regular retinal tox screening q6- 12mos, or else risk loss of vision, cytopenias, hepatotoxicity, cardiomyopathy, etc --of note, she has itching on generic hydroxychloroquine but NOT Brand Name Plaquenil - --Hx leukopenia, if continues and discordant to SLE disease activity -- low threshold to contact heme/onc, Jordan Sullivan for her carcinoid --seen , with no heme/onc concern per Laurie, would consider bone marrow biopsy but not at this time - --plantar fasciitis; status = STABLE --*establish care with Nitin bending frame operator at [facility] --bear, wgt loss - -L wrist fracture ; status = ?STABLE --ortho, f/u [place]. --Ordered DEXA to be completed as of - RTC 4-6mos or sooner PRN (ok to book with JENISE Truong routinely and periodically physician) - Medical decision making: level 4. multiple chronic conditions addressed; medication toxicity monitoring (plaquenil, notable attention to CBC/liver labs and retinal toxicity); lab, clinical, imaging monitoring for autoimmune disease activity and end organ involvement 10/25/2024Plantar fasciitis of left foot (ICD-10 - M72.2) Anne is an extremely pleasant, but stoic, 49yo white female, - Overall rheum impression = SLE, diagnosed 2019 with good serologic/lab evidence, (+) SRIRAM 1: 640 speckled, high titer RF, SSA, [employer], low C4, leukopenia, elevated ESR/CRP; rash suspicious for cutaneous lupus, prior photosensitivity, sulfa allergy, polyarthralgias, inflammatory arthritis (swelling, stiffness); 2nd sjogrens with SIC[facility]; monitor for RA/SLE ('Rhupus') overlap with (+) CCP mildly elevated, but plain films with NO inflammatory arthritis radiographic changes, Comorbid carcinoid tumor, thyroid disease. Complicated by ALT elevation, fatty liver Hx of L plantar fasciitis + OA L wrist fracture 2023 current SLE disease activity = suspect remission. NO synovitis or active rash PLAN: -OA; status = STABLE --wgt loss, low impact exercise - -ALT elevation; status = ?STABLE --trend, (-) viral hep panel --low threshold to ref to GI --avoid hepatotoxins, excessive alcohol --RUQ US borderline diffuse fatty infiltration --critical for WFPB diet which Man counseled her initially [id number] and again 63Rraj52/[id number] --advised 88Gpqw57/27Nbb77, vit E 400 IUs per day --Sp ANDERSON, status post GB surgery - -SLE; status = STABLE --reiterated dz process, complications/comorbidities --UPDATE periodically SLE dz activity markers --DMARDs options: MTX (ok stopping alcohol and had hysterectomy, though ALT elevation and fatty liver) VS arava; avoid SSZ due to sulfa allergy; imuran>MMF/benlysta (if more SLE activity), VS TNFi if more inflammatory arthritis clinically or radiographically --flares: restart low dose prednisone 10mg taper by 1/2tab = 2.5mg weekly; counseled on risk/benefits, including but not limited to diabetes, osteoporosis, etc --CA screening: counseled patient [id number] to ensure she is UTD age/sex appropriate routine cancer screening -CONTINUE HCQ/plaquenil 200MG BID (started ); [place], with sue MONTIEL, --last retinal screening = *see patient docs --Reiterated patient about risk/benefits, including but not limited to retinal toxicity (loss of vision), and importance of regular retinal tox screening q6- 12mos, or else risk loss of vision, cytopenias, hepatotoxicity, cardiomyopathy, etc --of note, she has itching on generic hydroxychloroquine but NOT Brand Name Plaquenil - --Hx leukopenia, if continues and discordant to SLE disease activity -- low threshold to contact heme/onc, Jordan Sullivan for her carcinoid --seen , with no heme/onc concern per Laurie, would consider bone marrow biopsy but not at this time - --plantar fasciitis; status = STABLE --*establish care with Nitin bending frame 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 --Ordered DEXA to be completed as of [id number] - RTC 4-6mos or sooner PRN (ok to book with SWITCHBOARD WIRER Dionne routinely and periodically physician) - Medical decision making: level 4. 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 Complicated by prior ALT elevation , fatty liver Hx of L plantar fasciitis + OA L wrist fracture 2023 current SLE disease activity = suspect remission. NO synovitis or active rash; (-) ESR/CRP PLAN: -OA; status = STABLE --wgt loss, low impact exercise - -ALT elevation; status = STABLE --trend, (-) viral hep panel --low threshold to ref to GI --avoid hepatotoxins, excessive alcohol --RUQ US Feb22 borderline diffuse fatty infiltration --critical for WFPB diet which Man counseled her initially 56Eow01 and again 20Pvc17 --advised 21Xar71, vit E 400 --Sp ANDERSON, status post GB surgery - -SLE; status = STABLE --reiterated dz process, complications/comorbidities --UPDATE periodic update SLE dz activity markers --DMARDs options: MTX (ok stopping alcohol and had hysterectomy, though ALT elevation and fatty liver) VS arava; avoid SSZ due to sulfa allergy; imuran>MMF/benlysta (if more SLE activity), VS TNFi if more inflammatory arthritis clinically or radiographically --flares: restart low dose prednisone 10mg taper by 1/2tab = 2.5mg weekly; counseled on risk/benefits, including but not limited to diabetes, osteoporosis, etc --ca screening: counseled patient [id number] to ensure she is UTD age/sex appropriate routine cancer screening - -CONTINUE HCQ/plaquenil 200MG BID (started ); [place], with sue MONTIEL, --last retinal screening = ; pt stated and she will go - -Reiterated patient about risk/benefits, including but not limited to retinal toxicity (loss of vision), and importance of regular retinal tox screening q6- 12mos, or else risk loss of vision, cytopenias, hepatotoxicity, cardiomyopathy, etc - -of note, she has itching on generic hydroxychloroquine but not brand name plaquenil -- UPDATE basic tox labs --Hx leukopenia, if continues, and discordant to SLE disease activity -- low threshold to contact heme/onc, Jordan Sullivan for her carcinoid - - seen , with no heme/onc concern per Laurie, would consider bone marrow biopsy but not at this time - --plantar fasciitis; status = STABLE --*establish care with Nitin bending frame operator at [facility] --bear, wgt loss - -L wrist fracture ; status = ?STABLE --ortho, f/u [place]. -- ORDER DEXA - RTC 4-6mos or sooner PRN (ok to book with JENISE Truong routinely and periodically physician) - Medical decision making: level 4. multiple chronic conditions addressed; medication toxicity monitoring (plaquenil, notable attention to CBC/liver labs and retinal toxicity); lab, clinical, imaging monitoring for autoimmune disease activity and end organ involvement 04/20/2024Encounter for long-term (current) use of other medications (ICD-10 - Z79.899) Anne is an extremely pleasant, but stoic, 48yo white female, - Overall rheum impression = SLE, diagnosed 2019 with good serologic/lab evidence, (+) SRIRAM 1: 640 speckled, high titer RF, SSA, MA[employer], low C4, leukopenia, elevated ESR/CRP; rash suspicious for cutaneous lupus, prior photosensitivity, sulfa allergy, polyarthralgias, inflammatory arthritis (swelling, stiffness); 2nd sjogrens with SICCA; monitor for RA/SLE ('Rhupus') overlap with (+) CCP mildly elevated, but plain films with NO inflammatory arthritis radiographic changes, Comorbid carcinoid tumor, thyroid disease. Complicated by prior ALT elevation , fatty liver Hx of L plantar fasciitis + OA L wrist fracture 2023 current SLE disease activity = suspect remission. NO synovitis or active rash; (-) ESR/CRP PLAN: -OA; status = STABLE --wgt loss, low impact exercise - -ALT elevation; status = STABLE --trend, (-) viral hep panel --low threshold to ref to GI --avoid hepatotoxins, excessive alcohol --RUQ US borderline diffuse fatty infiltration --critical for WFPB diet which Man counseled her initially 35Uzb57 and again 00Zhi86 --advised [id number], vit E 400 --Sp ANDERSON, status post GB surgery - -SLE; status = STABLE --reiterated dz process, complications/comorbidities --UPDATE periodic update SLE dz activity markers --DMARDs options: MTX (ok stopping alcohol and had hysterectomy, though ALT elevation and fatty liver) VS arava; avoid SSZ due to sulfa allergy; imuran>MMF/benlysta (if more SLE activity), VS TNFi if more inflammatory arthritis clinically or radiographically --flares: restart low dose prednisone 10mg taper by 1/2tab = 2.5mg weekly; counseled on risk/benefits, including but not limited to diabetes, osteoporosis, etc --ca screening: counseled patient [id number] to ensure she is UTD age/sex appropriate routine cancer screening - -CONTINUE HCQ/plaquenil 200MG BID (started ); [place], with sue MONTIEL, --last retinal screening = ; pt stated and she will go - -Reiterated patient about risk/benefits, including but not limited to retinal toxicity (loss of vision), and importance of regular retinal tox screening q6- 12mos, or else risk loss of vision, cytopenias, hepatotoxicity, cardiomyopathy, etc - -of note, she has itching on generic hydroxychloroquine but not brand name plaquenil -- UPDATE basic tox labs --Hx leukopenia, if continues, and discordant to SLE disease activity -- low threshold to contact heme/onc, Jordan Sullivan for her carcinoid - - seen , with no heme/onc concern per Laurie, would consider bone marrow biopsy but not at this time - --plantar fasciitis; status = STABLE --*establish care with Nitin bending frame 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 -- ORDER DEXA - RTC 4-6mos or sooner PRN (ok to book with JENISE Truong routinely and periodically physician) - Medical decision making: level 4. 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 Complicated by ALT elevation, fatty liver Hx of L plantar fasciitis + OA L wrist fracture 2023 current SLE disease activity = suspect remission. NO synovitis or active rash PLAN: -OA; status = STABLE --wgt loss, low impact exercise - -ALT elevation; status = ?STABLE --trend, (-) viral hep panel --low threshold to ref to GI --avoid hepatotoxins, excessive alcohol --RUQ US borderline diffuse fatty infiltration --critical for WFPB diet which Man counseled her initially 19Pzh51 and again 70Jbcj83/50Ewv90 --advised 90Gurr84/51Gjx78, vit E 400 IUs per day --Sp ANDERSON, status post GB surgery - -SLE; status = STABLE --reiterated dz process, complications/comorbidities --UPDATE periodically SLE dz activity markers --DMARDs options: MTX (ok stopping alcohol and had hysterectomy, though ALT elevation and fatty liver) VS arava; avoid SSZ due to sulfa allergy; imuran>MMF/benlysta (if more SLE activity), VS TNFi if more inflammatory arthritis clinically or radiographically --flares: restart low dose prednisone 10mg taper by 1/2tab = 2.5mg weekly; counseled on risk/benefits, including but not limited to diabetes, osteoporosis, etc --CA screening: counseled patient to ensure she is UTD age/sex appropriate routine cancer screening -CONTINUE HCQ/plaquenil 200MG BID (started ); [place], with sue MONTIEL, --last retinal screening = *see patient docs --Reiterated patient about risk/benefits, including but not limited to retinal toxicity (loss of vision), and importance of regular retinal tox screening q6- 12mos, or else risk loss of vision, cytopenias, hepatotoxicity, cardiomyopathy, etc --of note, she has itching on generic hydroxychloroquine but NOT Brand Name Plaquenil - --Hx leukopenia, if continues and discordant to SLE disease activity -- low threshold to contact heme/onc, Jordan Sullivan for her carcinoid --seen , with no heme/onc concern per Laurie, would consider bone marrow biopsy but not at this time - --plantar fasciitis; status = STABLE --*establish care with 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 --Ordered DEXA to be completed as of - RTC 4-6mos or sooner PRN (ok to book with JENISE Truong routinely and periodically physician) - Medical decision making: level 4. 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 Complicated by ALT elevation, fatty liver Hx of L plantar fasciitis + OA L wrist fracture 2023 current SLE disease activity = suspect remission. NO synovitis or active rash PLAN: -OA; status = STABLE --wgt loss, low impact exercise - -ALT elevation; status = ?STABLE --trend, (-) viral hep panel --low threshold to ref to GI --avoid hepatotoxins, excessive alcohol --RUQ US borderline diffuse fatty infiltration --critical for WFPB diet which Man counseled her initially [id number] and again 18Gywb76/ --advised 84Gdzb00/, vit E 400 IUs per day --Sp ANDERSON, status post GB surgery - -SLE; status = STABLE --reiterated dz process, complications/comorbidities --UPDATE periodically SLE dz activity markers --DMARDs options: MTX (ok stopping alcohol and had hysterectomy, though ALT elevation and fatty liver) VS arava; avoid SSZ due to sulfa allergy; imuran>MMF/benlysta (if more SLE activity), VS TNFi if more inflammatory arthritis clinically or radiographically --flares: restart low dose prednisone 10mg taper by 1/2tab = 2.5mg weekly; counseled on risk/benefits, including but not limited to diabetes, osteoporosis, etc --CA screening: counseled patient [id number] to ensure she is UTD age/sex appropriate routine cancer screening -CONTINUE HCQ/plaquenil 200MG BID (started ); [place], with sue MONTIEL, --last retinal screening = *see patient docs --Reiterated patient about risk/benefits, including but not limited to retinal toxicity (loss of vision), and importance of regular retinal tox screening q6- 12mos, or else risk loss of vision, cytopenias, hepatotoxicity, cardiomyopathy, etc --of note, she has itching on generic hydroxychloroquine but NOT Brand Name Plaquenil - --Hx leukopenia, if continues and discordant to SLE disease activity -- low threshold to contact heme/onc, Jordan Sullivan for her carcinoid --seen , with no heme/onc concern per Laurie, would consider bone marrow biopsy but not at this time - --plantar fasciitis; status = STABLE --*establish care with 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 --Ordered DEXA to be completed as of - RTC 4-6mos or sooner PRN (ok to book with JENISE Truong routinely and periodically physician) - Medical decision making: level 4. 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 Complicated by prior ALT elevation , fatty liver Hx of L plantar fasciitis + OA L wrist fracture 2023 current SLE disease activity = suspect remission. NO synovitis or active rash; (-) ESR/CRP PLAN: -OA; status = STABLE --wgt loss, low impact exercise - -ALT elevation; status = STABLE --trend, (-) viral hep panel --low threshold to ref to GI --avoid hepatotoxins, excessive alcohol --RUQ US borderline diffuse fatty infiltration --critical for WFPB diet which Man counseled her initially and again --advised 18Bqu24, vit E 400 --Sp ANDERSON, status post GB surgery - -SLE; status = STABLE --reiterated dz process, complications/comorbidities --UPDATE periodic update SLE dz activity markers --DMARDs options: MTX (ok stopping alcohol and had hysterectomy, though ALT elevation and fatty liver) VS arava; avoid SSZ due to sulfa allergy; imuran>MMF/benlysta (if more SLE activity), VS TNFi if more inflammatory arthritis clinically or radiographically --flares: restart low dose prednisone 10mg taper by 1/2tab = 2.5mg weekly; counseled on risk/benefits, including but not limited to diabetes, osteoporosis, etc --ca screening: counseled patient [id number] to ensure she is UTD age/sex appropriate routine cancer screening - -CONTINUE HCQ/plaquenil 200MG BID (started ); [place], with sue MONTIEL, --last retinal screening = ; pt stated and she will go - -Reiterated patient about risk/benefits, including but not limited to retinal toxicity (loss of vision), and importance of regular retinal tox screening q6- 12mos, or else risk loss of vision, cytopenias, hepatotoxicity, cardiomyopathy, etc - -of note, she has itching on generic hydroxychloroquine but not brand name plaquenil -- UPDATE basic tox labs --Hx leukopenia, if continues, and discordant to SLE disease activity -- low threshold to contact heme/onc, Jordan Sullivan for her carcinoid - - seen , with no heme/onc concern per Laurie, would consider bone marrow biopsy but not at this time - --plantar fasciitis; status = STABLE --*establish care with 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 -- ORDER DEXA - RTC 4-6mos or sooner PRN (ok to book with SW[employer]BOARD WIRER Dionne routinely and periodically physician) - Medical decision making: level 4. 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 Complicated by prior ALT elevation , fatty liver Hx of L plantar fasciitis + OA L wrist fracture 2023 current SLE disease activity = suspect remission. NO synovitis or active rash; (-) ESR/CRP PLAN: -OA; status = STABLE --wgt loss, low impact exercise - -ALT elevation; status = STABLE --trend, (-) viral hep panel --low threshold to ref to GI --avoid hepatotoxins, excessive alcohol --RUQ US Feb22 borderline diffuse fatty infiltration --critical for WFPB diet which Man counseled her initially [id number] and again [id number] --advised [id number], vit E 400 --Sp ANDERSON, status post GB surgery - -SLE; status = STABLE --reiterated dz process, complications/comorbidities --UPDATE periodic update SLE dz activity markers --DMARDs options: MTX (ok stopping alcohol and had hysterectomy, though ALT elevation and fatty liver) VS arava; avoid SSZ due to sulfa allergy; imuran>MMF/benlysta (if more SLE activity), VS TNFi if more inflammatory arthritis clinically or radiographically --flares: restart low dose prednisone 10mg taper by 1/2tab = 2.5mg weekly; counseled on risk/benefits, including but not limited to diabetes, osteoporosis, etc --ca screening: counseled patient [id number] to ensure she is UTD age/sex appropriate routine cancer screening - -CONTINUE HCQ/plaquenil 200MG BID (started ); [place], with sue MONTIEL, --last retinal screening = ; pt stated and she will go - -Reiterated patient about risk/benefits, including but not limited to retinal toxicity (loss of vision), and importance of regular retinal tox screening q6- 12mos, or else risk loss of vision, cytopenias, hepatotoxicity, cardiomyopathy, etc - -of note, she has itching on generic hydroxychloroquine but not brand name plaquenil -- UPDATE basic tox labs --Hx leukopenia, if continues, and discordant to SLE disease activity -- low threshold to contact heme/onc, Jordan Sullivan for her carcinoid - - seen , with no heme/onc concern per Laurie, would consider bone marrow biopsy but not at this time - --plantar fasciitis; status = STABLE --*establish care with 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 -- ORDER DEXA - RTC 4-6mos or sooner PRN (ok to book with JENISE Truong routinely and periodically physician) - Medical decision making: level 4. 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 Complicated by ALT elevation, fatty liver Hx of L plantar fasciitis + OA L wrist fracture 2023 current SLE disease activity = suspect remission. NO synovitis or active rash PLAN: -OA; status = STABLE --wgt loss, low impact exercise - -ALT elevation; status = ?STABLE --trend, (-) viral hep panel --low threshold to ref to GI --avoid hepatotoxins, excessive alcohol --RUQ US borderline diffuse fatty infiltration --critical for WFPB diet which Man counseled her initially [id number] and again 25Isnp40/25Ipz38 --advised 72Ytlr36/44Bje72, vit E 400 IUs per day --Sp ANDERSON, status post GB surgery - -SLE; status = STABLE --reiterated dz process, complications/comorbidities --UPDATE periodically SLE dz activity markers --DMARDs options: MTX (ok stopping alcohol and had hysterectomy, though ALT elevation and fatty liver) VS arava; avoid SSZ due to sulfa allergy; imuran>MMF/benlysta (if more SLE activity), VS TNFi if more inflammatory arthritis clinically or radiographically --flares: restart low dose prednisone 10mg taper by 1/2tab = 2.5mg weekly; counseled on risk/benefits, including but not limited to diabetes, osteoporosis, etc --CA screening: counseled patient [id number] to ensure she is UTD age/sex appropriate routine cancer screening -CONTINUE HCQ/plaquenil 200MG BID (started ); [place], with sue MONTIEL, --last retinal screening = *see patient docs --Reiterated patient about risk/benefits, including but not limited to retinal toxicity (loss of vision), and importance of regular retinal tox screening q6- 12mos, or else risk loss of vision, cytopenias, hepatotoxicity, cardiomyopathy, etc --of note, she has itching on generic hydroxychloroquine but NOT Brand Name Plaquenil - --Hx leukopenia, if continues and discordant to SLE disease activity -- low threshold to contact heme/onc, Jordan Sullivan for her carcinoid --seen , with no heme/onc concern per Laurie, would consider bone marrow biopsy but not at this time - --plantar fasciitis; status = STABLE --*establish care with 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 --Ordered DEXA to be completed as of - RTC 4-6mos or sooner PRN (ok to book with JENISE Truong routinely and periodically physician) - Medical decision making: level 4. 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 Complicated by ALT elevation, fatty liver Hx of L plantar fasciitis + OA L wrist fracture 2023 current SLE disease activity = suspect remission. NO synovitis or active rash PLAN: -OA; status = STABLE --wgt loss, low impact exercise - -ALT elevation; status = ?STABLE --trend, (-) viral hep panel --low threshold to ref to GI --avoid hepatotoxins, excessive alcohol --RUQ US borderline diffuse fatty infiltration --critical for WFPB diet which Man counseled her initially 80Qws01 and again 26Hbla51/52Tpi33 --advised 19Fsfw01/75Nnr39, vit E 400 IUs per day --Sp ANDERSON, status post GB surgery - -SLE; status = STABLE --reiterated dz process, complications/comorbidities --UPDATE periodically SLE dz activity markers --DMARDs options: MTX (ok stopping alcohol and had hysterectomy, though ALT elevation and fatty liver) VS arava; avoid SSZ due to sulfa allergy; imuran>MMF/benlysta (if more SLE activity), VS TNFi if more inflammatory arthritis clinically or radiographically --flares: restart low dose prednisone 10mg taper by 1/2tab = 2.5mg weekly; counseled on risk/benefits, including but not limited to diabetes, osteoporosis, etc --CA screening: counseled patient to ensure she is UTD age/sex appropriate routine cancer screening -CONTINUE HCQ/plaquenil 200MG BID (started ); [place], with sue MONTIEL, --last retinal screening = *see patient docs --Reiterated patient about risk/benefits, including but not limited to retinal toxicity (loss of vision), and importance of regular retinal tox screening q6- 12mos, or else risk loss of vision, cytopenias, hepatotoxicity, cardiomyopathy, etc --of note, she has itching on generic hydroxychloroquine but NOT Brand Name Plaquenil - --Hx leukopenia, if continues and discordant to SLE disease activity -- low threshold to contact heme/onc, Jordan Sullivan for her carcinoid --seen , with no heme/onc concern per Laurie, would consider bone marrow biopsy but not at this time - --plantar fasciitis; status = STABLE --*establish care with 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 --Ordered DEXA to be completed as of - RTC 4-6mos or sooner PRN (ok to book with SWITCHBOARD WIRER Dionne routinely and periodically physician) - Medical decision making: level 4. 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 Complicated by prior ALT elevation , fatty liver Hx of L plantar fasciitis + OA L wrist fracture 2023 current SLE disease activity = suspect remission. NO synovitis or active rash; (-) ESR/CRP PLAN: -OA; status = STABLE --wgt loss, low impact exercise - -ALT elevation; status = STABLE --trend, (-) viral hep panel --low threshold to ref to GI --avoid hepatotoxins, excessive alcohol --RUQ US borderline diffuse fatty infiltration --critical for WFPB diet which Man counseled her initially and again --advised [id number], vit E 400 --Sp ANDERSON, status post GB surgery - -SLE; status = STABLE --reiterated dz process, complications/comorbidities --UPDATE periodic update SLE dz activity markers --DMARDs options: MTX (ok stopping alcohol and had hysterectomy, though ALT elevation and fatty liver) VS arava; avoid SSZ due to sulfa allergy; imuran>MMF/benlysta (if more SLE activity), VS TNFi if more inflammatory arthritis clinically or radiographically --flares: restart low dose prednisone 10mg taper by 1/2tab = 2.5mg weekly; counseled on risk/benefits, including but not limited to diabetes, osteoporosis, etc --ca screening: counseled patient to ensure she is UTD age/sex appropriate routine cancer screening - -CONTINUE HCQ/plaquenil 200MG BID (started ); [place], with sue MONTIEL, --last retinal screening = ; pt stated and she will go - -Reiterated patient about risk/benefits, including but not limited to retinal toxicity (loss of vision), and importance of regular retinal tox screening q6- 12mos, or else risk loss of vision, cytopenias, hepatotoxicity, cardiomyopathy, etc - -of note, she has itching on generic hydroxychloroquine but not brand name plaquenil -- UPDATE basic tox labs --Hx leukopenia, if continues, and discordant to SLE disease activity -- low threshold to contact heme/onc, Jordan Sullivan for her carcinoid - - seen , with no heme/onc concern per Laurie, would consider bone marrow biopsy but not at this time - --plantar fasciitis; status = STABLE --*establish care with 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 -- ORDER DEXA - RTC 4-6mos or sooner PRN (ok to book with JENISE Truong routinely and periodically physician) - Medical decision making: level 4. 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 Complicated by prior ALT elevation , fatty liver Hx of L plantar fasciitis + OA L wrist fracture 2023 current SLE disease activity = suspect remission. NO synovitis or active rash; (-) ESR/CRP PLAN: -OA; status = STABLE --wgt loss, low impact exercise - -ALT elevation; status = STABLE --trend, (-) viral hep panel --low threshold to ref to GI --avoid hepatotoxins, excessive alcohol --RUQ US borderline diffuse fatty infiltration --critical for WFPB diet which Man counseled her initially and again --advised [id number], vit E 400 --Sp ANDERSON, status post GB surgery - -SLE; status = STABLE --reiterated dz process, complications/comorbidities --UPDATE periodic update SLE dz activity markers --DMARDs options: MTX (ok stopping alcohol and had hysterectomy, though ALT elevation and fatty liver) VS arava; avoid SSZ due to sulfa allergy; imuran>MMF/benlysta (if more SLE activity), VS TNFi if more inflammatory arthritis clinically or radiographically --flares: restart low dose prednisone 10mg taper by 1/2tab = 2.5mg weekly; counseled on risk/benefits, including but not limited to diabetes, osteoporosis, etc --ca screening: counseled patient [id number] to ensure she is UTD age/sex appropriate routine cancer screening - -CONTINUE HCQ/plaquenil 200MG BID (started ); [place], with sue MONTIEL, --last retinal screening = ; pt stated and she will go - -Reiterated patient about risk/benefits, including but not limited to retinal toxicity (loss of vision), and importance of regular retinal tox screening q6- 12mos, or else risk loss of vision, cytopenias, hepatotoxicity, cardiomyopathy, etc - -of note, she has itching on generic hydroxychloroquine but not brand name plaquenil -- UPDATE basic tox labs --Hx leukopenia, if continues, and discordant to SLE disease activity -- low threshold to contact heme/onc, Jordan Sullivan for her carcinoid - - seen , with no heme/onc concern per Laurie, would consider bone marrow biopsy but not at this time - --plantar fasciitis; status = STABLE --*establish care with 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 -- ORDER DEXA - RTC 4-6mos or sooner PRN (ok to book with SWITCHBOARD WIRER Dionne routinely and periodically physician) - Medical decision making: level 4. 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 Complicated by ALT elevation, fatty liver Hx of L plantar fasciitis + OA L wrist fracture 2023 current SLE disease activity = suspect remission. NO synovitis or active rash PLAN: -OA; status = STABLE --wgt loss, low impact exercise - -ALT elevation; status = ?STABLE --trend, (-) viral hep panel --low threshold to ref to GI --avoid hepatotoxins, excessive alcohol --RUQ US Feb22 borderline diffuse fatty infiltration --critical for WFPB diet which Man counseled her initially 04Oij50 and again 28Rntd83/70Mbd61 --advised /, vit E 400 IUs per day --Sp ANDERSON, status post GB surgery - -SLE; status = STABLE --reiterated dz process, complications/comorbidities --UPDATE periodically SLE dz activity markers --DMARDs options: MTX (ok stopping alcohol and had hysterectomy, though ALT elevation and fatty liver) VS arava; avoid SSZ due to sulfa allergy; imuran>MMF/benlysta (if more SLE activity), VS TNFi if more inflammatory arthritis clinically or radiographically --flares: restart low dose prednisone 10mg taper by 1/2tab = 2.5mg weekly; counseled on risk/benefits, including but not limited to diabetes, osteoporosis, etc --CA screening: counseled patient to ensure she is UTD age/sex appropriate routine cancer screening -CONTINUE HCQ/plaquenil 200MG BID (started ); [place], with sue MONTIEL, --last retinal screening = *see patient docs --Reiterated patient about risk/benefits, including but not limited to retinal toxicity (loss of vision), and importance of regular retinal tox screening q6- 12mos, or else risk loss of vision, cytopenias, hepatotoxicity, cardiomyopathy, etc --of note, she has itching on generic hydroxychloroquine but NOT Brand Name Plaquenil - --Hx leukopenia, if continues and discordant to SLE disease activity -- low threshold to contact heme/onc, Jordan Sullivan for her carcinoid --seen , with no heme/onc concern per Laurie, would consider bone marrow biopsy but not at this time - --plantar fasciitis; status = STABLE --*establish care with Nitin bending frame operator at [facility] --maryam sifuentes loss - -L wrist fracture ; status = ?STABLE --ortho, f/u [place]. --Ordered DEXA to be completed as of - RTC 4-6mos or sooner PRN (ok to book with JENISE Truong routinely and periodically physician) - Medical decision making: level 4. 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 Complicated by prior ALT elevation , fatty liver Hx of L plantar fasciitis + OA L wrist fracture 2023 current SLE disease activity = suspect remission. NO synovitis or active rash; (-) ESR/CRP PLAN: -OA; status = STABLE --wgt loss, low impact exercise - -ALT elevation; status = STABLE --trend, (-) viral hep panel --low threshold to ref to GI --avoid hepatotoxins, excessive alcohol --RUQ US borderline diffuse fatty infiltration --critical for WFPB diet which Man counseled her initially [id number] and again 71Qsl53 --advised 44Uls75, vit E 400 --Sp ANDERSON, status post GB surgery - -SLE; status = STABLE --reiterated dz process, complications/comorbidities --UPDATE periodic update SLE dz activity markers --DMARDs options: MTX (ok stopping alcohol and had hysterectomy, though ALT elevation and fatty liver) VS arava; avoid SSZ due to sulfa allergy; imuran>MMF/benlysta (if more SLE activity), VS TNFi if more inflammatory arthritis clinically or radiographically --flares: restart low dose prednisone 10mg taper by 1/2tab = 2.5mg weekly; counseled on risk/benefits, including but not limited to diabetes, osteoporosis, etc --ca screening: counseled patient [id number] to ensure she is UTD age/sex appropriate routine cancer screening - -CONTINUE HCQ/plaquenil 200MG BID (started ); [place], with sue MONTIEL, --last retinal screening = ; pt stated and she will go - -Reiterated patient about risk/benefits, including but not limited to retinal toxicity (loss of vision), and importance of regular retinal tox screening q6- 12mos, or else risk loss of vision, cytopenias, hepatotoxicity, cardiomyopathy, etc - -of note, she has itching on generic hydroxychloroquine but not brand name plaquenil -- UPDATE basic tox labs --Hx leukopenia, if continues, and discordant to SLE disease activity -- low threshold to contact heme/onc, Jordan Sullivan for her carcinoid - - seen , with no heme/onc concern per Laurie, would consider bone marrow biopsy but not at this time - --plantar fasciitis; status = STABLE --*establish care with Nitin bending frame 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 -- ORDER DEXA - RTC 4-6mos or sooner PRN (ok to book with JENISE Truong routinely and periodically physician) - Medical decision making: level 4. 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 Complicated by prior ALT elevation , fatty liver Hx of L plantar fasciitis + OA L wrist fracture 2023 current SLE disease activity = suspect remission. NO synovitis or active rash; (-) ESR/CRP PLAN: -OA; status = STABLE --wgt loss, low impact exercise - -ALT elevation; status = STABLE --trend, (-) viral hep panel --low threshold to ref to GI --avoid hepatotoxins, excessive alcohol --RUQ US borderline diffuse fatty infiltration --critical for WFPB diet which Man counseled her initially [id number] and again --advised [id number], vit E 400 --Sp ANDERSON, status post GB surgery - -SLE; status = STABLE --reiterated dz process, complications/comorbidities --UPDATE periodic update SLE dz activity markers --DMARDs options: MTX (ok stopping alcohol and had hysterectomy, though ALT elevation and fatty liver) VS arava; avoid SSZ due to sulfa allergy; imuran>MMF/benlysta (if more SLE activity), VS TNFi if more inflammatory arthritis clinically or radiographically --flares: restart low dose prednisone 10mg taper by 1/2tab = 2.5mg weekly; counseled on risk/benefits, including but not limited to diabetes, osteoporosis, etc --ca screening: counseled patient to ensure she is UTD age/sex appropriate routine cancer screening - -CONTINUE HCQ/plaquenil 200MG BID (started ); [place], with sue MONTIEL, --last retinal screening = ; pt stated and she will go - -Reiterated patient about risk/benefits, including but not limited to retinal toxicity (loss of vision), and importance of regular retinal tox screening q6- 12mos, or else risk loss of vision, cytopenias, hepatotoxicity, cardiomyopathy, etc - -of note, she has itching on generic hydroxychloroquine but not brand name plaquenil -- UPDATE basic tox labs --Hx leukopenia, if continues, and discordant to SLE disease activity -- low threshold to contact heme/onc, Jordan Sullivan for her carcinoid - - seen , with no heme/onc concern per Laurie, would consider bone marrow biopsy but not at this time - --plantar fasciitis; status = STABLE --*establish care with Nitin bending frame 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 -- ORDER DEXA - RTC 4-6mos or sooner PRN (ok to book with SW[facility]ARD W[employer] Dionne routinely and periodically physician) - Medical decision making: level 4. multiple chronic conditions addressed; medication toxicity monitoring (plaquenil, notable attention to CBC/liver labs and retinal toxicity); lab, clinical, imaging monitoring for autoimmune disease activity and end organ involvement 04/20/2024History of immunosuppression (ICD-10 - Z92.25) Anne is an extremely pleasant, but stoic, 48yo white female, - Overall rheum impression = SLE, diagnosed 2019 with good serologic/lab evidence, (+) SRIRAM 1: 640 speckled, high titer RF, SSA, [employer], low C4, leukopenia, elevated ESR/CRP; rash suspicious for cutaneous lupus, prior photosensitivity, sulfa allergy, polyarthralgias, inflammatory arthritis (swelling, stiffness); 2nd sjogrens with [facility]; monitor for RA/SLE ('Rhupus') overlap with (+) CCP mildly elevated, but plain films with NO inflammatory arthritis radiographic changes, Comorbid carcinoid tumor, thyroid disease. Complicated by prior ALT elevation , fatty liver Hx of L plantar fasciitis + OA L wrist fracture 2023 current SLE disease activity = suspect remission. NO synovitis or active rash; (-) ESR/CRP PLAN: -OA; status = STABLE --wgt loss, low impact exercise - -ALT elevation; status = STABLE --trend, (-) viral hep panel --low threshold to ref to GI --avoid hepatotoxins, excessive alcohol --RUQ US borderline diffuse fatty infiltration --critical for WFPB diet which Man counseled her initially [id number] and again --advised [id number], vit E 400 --Sp ANDERSON, status post GB surgery - -SLE; status = STABLE --reiterated dz process, complications/comorbidities --UPDATE periodic update SLE dz activity markers --DMARDs options: MTX (ok stopping alcohol and had hysterectomy, though ALT elevation and fatty liver) VS arava; avoid SSZ due to sulfa allergy; imuran>MMF/benlysta (if more SLE activity), VS TNFi if more inflammatory arthritis clinically or radiographically --flares: restart low dose prednisone 10mg taper by 1/2tab = 2.5mg weekly; counseled on risk/benefits, including but not limited to diabetes, osteoporosis, etc --ca screening: counseled patient to ensure she is UTD age/sex appropriate routine cancer screening - -CONTINUE HCQ/plaquenil 200MG BID (started ); [place], with sue MONTIEL, --last retinal screening = ; pt stated and she will go - -Reiterated patient about risk/benefits, including but not limited to retinal toxicity (loss of vision), and importance of regular retinal tox screening q6- 12mos, or else risk loss of vision, cytopenias, hepatotoxicity, cardiomyopathy, etc - -of note, she has itching on generic hydroxychloroquine but not brand name plaquenil -- UPDATE basic tox labs --Hx leukopenia, if continues, and discordant to SLE disease activity -- low threshold to contact heme/onc, Jordan Sullivan for her carcinoid - - seen , with no heme/onc concern per Laurie, would consider bone marrow biopsy but not at this time - --plantar fasciitis; status = STABLE --*establish care with 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 -- ORDER DEXA - RTC 4-6mos or sooner PRN (ok to book with JENISE Truong routinely and periodically physician) - Medical decision making: level 4. multiple chronic conditions addressed; medication toxicity monitoring (plaquenil, notable attention to CBC/liver labs and retinal toxicity); lab, clinical, imaging monitoring for autoimmune disease activity and end organ involvement 04/20/2024Encounter for vitamin deficiency screening (ICD-10 - Z13.21) Anne is an extremely pleasant, but stoic, 48yo white female, - Overall rheum impression = SLE, diagnosed 2019 with good serologic/lab evidence, (+) SRIRAM 1: 640 speckled, high titer RF, SSA, [employer], low C4, leukopenia, elevated ESR/CRP; rash suspicious for cutaneous lupus, prior photosensitivity, sulfa allergy, polyarthralgias, inflammatory arthritis (swelling, stiffness); 2nd sjogrens with SIC[facility]; monitor for RA/SLE ('Rhupus') overlap with (+) CCP mildly elevated, but plain films with NO inflammatory arthritis radiographic changes, Comorbid carcinoid tumor, thyroid disease. Complicated by prior ALT elevation , fatty liver Hx of L plantar fasciitis + OA L wrist fracture 2023 current SLE disease activity = suspect remission. NO synovitis or active rash; (-) ESR/CRP PLAN: -OA; status = STABLE --wgt loss, low impact exercise - -ALT elevation; status = STABLE --trend, (-) viral hep panel --low threshold to ref to GI --avoid hepatotoxins, excessive alcohol --RUQ US borderline diffuse fatty infiltration --critical for WFPB diet which Man counseled her initially and again --advised [id number], vit E 400 --Sp ANDERSON, status post GB surgery - -SLE; status = STABLE --reiterated dz process, complications/comorbidities --UPDATE periodic update SLE dz activity markers --DMARDs options: MTX (ok stopping alcohol and had hysterectomy, though ALT elevation and fatty liver) VS arava; avoid SSZ due to sulfa allergy; imuran>MMF/benlysta (if more SLE activity), VS TNFi if more inflammatory arthritis clinically or radiographically --flares: restart low dose prednisone 10mg taper by 1/2tab = 2.5mg weekly; counseled on risk/benefits, including but not limited to diabetes, osteoporosis, etc --ca screening: counseled patient [id number] to ensure she is UTD age/sex appropriate routine cancer screening - -CONTINUE HCQ/plaquenil 200MG BID (started ); [place], with sue MONTIEL, --last retinal screening = ; pt stated and she will go - -Reiterated patient about risk/benefits, including but not limited to retinal toxicity (loss of vision), and importance of regular retinal tox screening q6- 12mos, or else risk loss of vision, cytopenias, hepatotoxicity, cardiomyopathy, etc - -of note, she has itching on generic hydroxychloroquine but not brand name plaquenil -- UPDATE basic tox labs --Hx leukopenia, if continues, and discordant to SLE disease activity -- low threshold to contact heme/onc, Jordan Sullivan for her carcinoid - - seen , with no heme/onc concern per Laurie, would consider bone marrow biopsy but not at this time - --plantar fasciitis; status = STABLE --*establish care with 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 -- ORDER DEXA - RTC 4-6mos or sooner PRN (ok to book with JENISE Truong routinely and periodically physician) - Medical decision making: level 4. multiple chronic conditions addressed; medication toxicity monitoring (plaquenil, notable attention to CBC/liver labs and retinal toxicity); lab, clinical, imaging monitoring for autoimmune disease activity and end organ involvement Plan Of Treatment Pending Test Test Name Order Date DEXA Axial Skeleton (hips, pelvis, spine )* 04/20/2024 Next Appt Details Provider Name:Avelino albrecht, 05/30/2025 03:00:00 PM, [address], [address], [place], [address], Insurance Providers Payer Name Payer Address Payer Phone Subscriber Number Group Number Insured Name Patient Relationship to Insured Coverage Start Date Coverage End Date MMO [employer] [address] [address] [place] [address] [id number] Spouse - patient is the spouse of the insured 4 Medical (General) History Medical History History ICD Code hypertension kidney stonesthyroid diseaseNo DefibrilatorNo PacemakerSLESurgical History Surgery Date(Month/Year) hysterectomy 08/2018 kidney stones - removed left wrist fracture - surgery/plates10/2023gall ztvelyt4304/02/2024olonoscopy and egd11/2023
--- OUTSIDE RECORDS SUMMARY | 2025-04-06 10:23 | XMS_ITS | Encounter Summary ---
Author Organization [facility] Address [address] [place] [address] Care Team Providers Care Histopathology Technician Name Role Phone Karla Wong MD Primary Care Provider [phone] Encounter Details DateTypeDepartmentCare Team (Latest Contact Info)Wpzyovutvld86/10/2025amboo flowsheet [facility] [address] [place] [id number] Esteban Schilling MD [address] [place] [address] Social History Tobacco UseTypesPacks/DayYears UsedDateSmoking Tobacco: NeverSmokeless Tobacco: NeverAlcohol UseStandard Drinks/WeekCommentsYes0 (1 standard drink = 0.6 oz pure alcohol)caffeine: coffee, sodaPHQ-2AnswerDate RecordedPatient Health Questionnaire-2 [id number] and Gender Information ValueDate RecordedSex Assigned at BirthNot on fileLegal SazJlneiw95/15/2023 6:36 PM EDTGender IdentityNot on fileSexual OrientationNot on filedocumented as of this encounter Plan of Treatment Not on file documented as of this encounter Visit Diagnoses Not on filedocumented in this encounter Care Teams Team MemberRelationshipSpecialtyStart DateEnd Date Karla Wong MD [address] [place] [address] PCP - GeneralFamily Medicine10/18/23documented as of this encounter
--- OUTSIDE RECORDS SUMMARY | 2025-04-06 10:23 | XMS_ITS | Encounter Summary ---
Author Organization [facility] Address [address] [place] [address] Care Team Providers Care Automotive Glass Mechanic Name Role Phone Karla Wong MD Primary Care Provider [phone] Reason for Visit * ReasonOnset AqksNyfrnrhqGWB08/17/2025 Encounter Details DateTypeDepartmentCare Team (Latest Contact Info)Cevlagwwyrx02/17/2025Telephone [facility] [address] [address] Robina Bailey RN LDI Social History Tobacco UseTypesPacks/DayYears UsedDateSmoking Tobacco: NeverSmokeless Tobacco: NeverAlcohol UseStandard Drinks/WeekCommentsYes0 (1 standard drink = 0.6 oz pure alcohol)caffeine: coffee, sodaPHQ-2AnswerDate RecordedPatient Health Questionnaire-2 [id number] and Gender Information ValueDate RecordedSex Assigned at BirthNot on fileLegal RgzHcayyt64/15/2023 6:36 PM EDTGender IdentityNot on fileSexual OrientationNot on filedocumented as of this encounter Miscellaneous Notes * Telephone Encounter - Robina Bailey RN - 04/03/2025 9:03 AM EST Pt reported that she took her LDI Env C6 titrating dose on 03/27/2025. Pt questioning if she maybe felt worse x1 day then better for a few days. No real significant change. Pt will proceed with titration and take her LDI Env C5.5 titrating dose today. documented in this encounter Plan of Treatment Not on file documented as of this encounter Visit Diagnoses Diagnosis Chronic cough Cough documented in this encounter Care Teams Team MemberRelationshipSpecialtyStart DateEnd Date Karla Wong MD [address] [place] [address] PCP - GeneralFamily Medicine10/18/23documented as of this encounter
--- OUTSIDE RECORDS SUMMARY | 2025-04-06 10:24 | XMS_ITS | Clinical Summary ---
Author Organization [facility] Address [address] [place] [address] Care Team Providers Care Locomotive Supervisor Name Role Phone Karla Wong MD Primary Care Provider [phone] Allergies Active AllergyReactionsCriticalityNoted AkauOeaukefcTocerpcdtjyajrjlkm28/05/2023 Other Reaction(s): generic causes itching LisinoprilShortness of dphpjkTmod95/05/7637Oafokzgqvbgeqh68/05/2023 Other Reaction(s): flu like symptoms RqvxdjwbsgnwyhzcMdhtv98/02/2011 Other Reaction(s): Hives/Skin Rash Sulfamethoxazole-Oauloahtqfxj92/08/2018 hives Dtlflouexhfl99/05/2023 Other Reaction(s): Hives/Skin Rash Medications MedicationSigDispense QuantityRefillsLast FilledStart DateEnd DateStatus Multiple Vitamin (multivitamin) tablet Take 1 tablet by mouth in the morning.Active hydroxychloroquine (Plaquenil) 200 MG tablet Take 200 mg by mouth in the morning and 200 mg before bedtime.Active fluticasone (Flonase) 50 MCG/ACT nasal spray Indications:Acute non-recurrent frontal sinusitisUSE 1 - 2 SPRAYS IN EACH NOSTRIL ONCE A DAY *PRIME PUMP/CLEAN TIP/REPLACE CAP* 48 mL 5Active Additional Information Patient taking differently: PRN, Reported on 03/27/2025 olmesartan (BENIcar) 40 MG tablet Indications:Benign essential hypertensionTAKE 1 TABLET (40 MG) BY MOUTH DAILY 100 tablet 5Active levothyroxine (Synthroid, Levoxyl) 75 MCG tablet Indications:Acquired hypothyroidismTAKE 1 TABLET (75 MCG) BY MOUTH DAILY ON AN EMPTY STOMACH. 100 tablet 5Active estradiol (Estrace) 1 MG tablet Indications:Estrogen deficiencyTAKE 1 TABLET (1 MG) BY MOUTH DAILY 100 tablet 5Active pantoprazole (ProtoNix) 40 MG EC tablet Indications:Other acute gastritis without hemorrhageTAKE 1 TABLET (40 MG) BY MOUTH IN THE MORNING. TAKE BEFORE MEALS. DO NOT CRUSH, CHEW, OR SPLIT.. 100 tablet 5Active hydroCHLOROthiazide (HYDRODiuril) 25 MG tablet Indications:Benign essential hypertensionTAKE ONE TABLET BY MOUTH ONCE DAILY 100 tablet 5Active LDI Indications:Chronic coughPlace 1 Dose under the tongue See administration instructions LDI: Environmental Mix C5.5 Units:4 Dose Type: Pkvjxlhdy67/17/2025 04/03/2026ctive albuterol (2.5 MG/3ML) 0.083% nebulizer solution Indications:Acute bronchitis, unspecified organismUSE 3ML (2.5MG) BY NEBULIZATION EVERY 6 HOURS NEEDED FOR WHEEZING 75 mL tive albuterol (2.5 MG/3ML) 0.083% nebulizer solution Indications:Acute bronchitis, unspecified organismTake 3 mL (2.5 mg) by nebulization every 6 (six) hours if needed for wheezing 75 mL 110Discontinued methylPREDNISolone (Medrol Dospak) 4 MG tablets Indications:Chronic coughFollow schedule on package instructions 21 tablet /Expired LDI Indications:Chronic coughPlace 1 Dose under the tongue See administration instructions Qhlsxesnrqmru26Discontinued(Dose adjustment) Active Problems ProblemNoted DateDiagnosed DateEstrogen uxpfwjcmlc52/13/2025Hormone replacement zqhobyn9811/28/2024History of skrmktirl88/13/2675Bkkyozozwoavr68/25/2025Plantar fasciitis of left foot08/10/2024Kidney fkkfio0108/10/2024History of vjhtltldrzdobgweb20/25/2025Generalized fbftpztmszkfba56/25/2025ne rosacea, papular type08/10/2024Duodenal knmftop85/13/2024Left wrist pain12/20/2023 Tciehkhxp64/28/2024ry eyes05/20/2023lass 1 obesity without serious comorbidity with body mass index (BMI) of 30.0 to 30.9 in adult03/22/2023Hyperplastic rectal polyp02/04/2023ersonal history of colonic rhaghn3601/14/2023ersonal history of benign carcinoid tumor01/14/2023hronic tubulo-interstitial zhdqslbji42/05/2023 Fatty liver12/21/2022eneralized anxiety irwsqrsb00/05/2023Hyperlipidemia 12/21/20220360Psfmkzwizhzvdu85/05/2023Thyroid mvxhjr0712/21/2022Iron deficiency anemia 12/21/20224695Yxyippsmvjo17/05/2023Long-term use of Xtlgstaqp44/05/2023LPRD (laryngopharyngeal reflux disease)12/21/2022Myopia of both eyes12/21/2022Nuclear senile bqcvpnoh63/05/2023Other articular cartilage disorders, right shoulder 12/21/2022reglaucoma, unspecified, nzvbvpums82/05/2023Sjogren's syndrome 12/21/2022Systemic lupus zxkhxrozzitbk40/05/2023Vitamin D prtqawdvkq67/05/2023 History of auaqcpoapimu58/19/2023Sicca vmckxwai50/14/2011llergic rhinitis 09/03/2009enign essential kjsbyzqcsjev08/16/2009 Resolved Problems ProblemNoted DateDiagnosed DateResolved YtcjGouusdakkzmi09/25/202508/ Khtexozi95/25//ute tesipngpcgyzgs07Influenza A /5443Vbjsfmpxjt11/28//ntral qerlufqht55/19/2024 11/28/2024Other intraarticular fracture of lower end of left radius, subsequent encounter for closed fracturewith routine eluhtnz88/iliary pkrwqtgimh99ostochondritisRUQ pain arcinoid tumor of ovarylepharitis of upper and lower eyelids of both eyes/arcinoid tumor Right carpal tunnel sezujgbw02Mucinous cystadenoma of ovaryStruma ovarii and veykdqepy54/13/2014 03/22/2023COS (polycystic ovarian syndrome) Encounters DateTypeDepartmentCare DoniGagukdpcers28/19/2025Refill [facility] [address] [facility] [address] [place] [address] Karla Wong MD Acute bronchitis, unspecified bgoiqvtb33/17/2025Telephone [address] [place] [address] Robina Bailey RN LDI105/28/2024 9:00 AM ESTOffice Visit [address] [place] [address] Esteban Schilling MD Chronic cough (Primary Dx); History of immunosuppression; Non-seasonal allergic rhinitis due to ajjcrb6503/27/2025amboo flowsheet [address] [place] [address] Esteban Schilling MD 03/27/20259798Jqghmo14/09/2025 8:15 AM ESTAncillary Procedure [facility] [address] [facility] [address] [place] [phone] Persistent cough for 3 weeks or longer; History of immunosuppression; Systemic lupus erythematosus, unspecified SLE type, unspecified organ involvement status ([facility])03/26/20253730Xlnepu70/02/2025Telephone [facility] [address] [facility] [address] [place] [address] Samantha Resendez PA 03/18/2025bstract NOM[address] [place] [address] Karla Wong MD 03/15/2025External Result Encounter [facility] External Department Unsolicited Samantha Resendez PA 03/04/2025 3:00 PM ESTAncillary Procedure [facility] [address] [place] [address] [place] [phone] Persistent cough03/04/20256854Mfnigq54/14/2025Telephone [facility] [place] [facility] [address] [facility] [address] [place] [address] Janeen Harper NP 02/27/2025Orders Only [facility] [place] [facility] [address] [facility] [address] [place] [address] Samantha Resendez PA Persistent cough (Primary Dx)02/06/2025[facility] [place] [facility] [address] [facility] [address] [place] [address] Samantha Resendez PA Other acute gastritis without hemorrhage; Benign essential glvmpqcywghp58/22/2025Refill [facility] [place] [facility] [address] [facility] [address] [place] [address] Karla Wong MD Estrogen /10/2025bstract [facility] [place] [facility] [address] [facility] [address] [place] [address] Karla Wong MD 01/25/2025bstract [facility] [place] [facility] [address] [facility] [address] [place] [address] Karla Wong MD 01/23/2025 1:00 PM EDTOffice Visit [facility] [place] [facility] [address] [facility] [address] [place] [address] Samantha Resendez PA Persistent cough for 3 weeks or longer (Primary Dx); Encounter for screening mammogram for malignant neoplasm of breast; Acute pharyngitis, unspecified etiology; Llyirynapob76/08/2025External Result Encounter [facility] External Department Unsolicited Samantha Resendez PA 01/23/2025amboo flowsheet [facility] [place] [facility] [address] [facility] [address] [place] [address] Samantha Resendez PA 01/23/20251087Rsttlg59/01/2025 8:30 AM EDTAncillary Procedure [facility] [address] [place] [address] [facility] [place] [place] [address] Acute cough01/16/20257001Gjbwns80/01/2025[facility] [address] [place] [address] [place] [phone] Samantha Resendez PA 01/14/2025Telephone [facility] [place] [facility] [address] [facility] [address] [place] [phone] Samantha Resendez PA from Last 3 Months Immunizations ImmunizationAdministration DatesNext DueInfluenza, injectable, quadrivalent 02/18/2016Influenza, seasonal, intradermal, preservative free02/15/2018Tdap 01/14/2021 Family History Medical HistoryRelationNameCommentsHeart diseaseFatherHypertensionFatherStroke FatherHypertensionMotherStrokeMotherHypertensionSisterRelationNameStatusComments FatherAliveMotherAliveSister Social History Tobacco UseTypesPacks/DayYears UsedDateSmoking Tobacco: NeverSmokeless Tobacco: Never Tobacco Cessation:Counseling Given: Yes Alcohol UseStandard Drinks/WeekCommentsYes0 (1 standard drink = 0.6 oz pure alcohol)caffeine: coffee, sodaPHQ-2AnswerDate RecordedPatient Health Questionnaire-2 Mdmnq536CommentsNoSex and Gender Information ValueDate RecordedSex Assigned at BirthNot on fileLegal AxiFbxqir91/15/2023 6:36 PM EDTGender IdentityNot on fileSexual OrientationNot on file Last Filed Vital Signs Vital SignReadingTime TakenCommentsBlood Tiuuztnq588/6610 1:06 PM EDT Jkfcl1478 1:06 PM JSFFheazcdlush23.4 ??C (97.6 ??F)05/15/2024 9:30 AM ESTRespiratory Fyfi3114 1:06 PM EDTOxygen Adonqldpfv68%01/23/2025 1:06 PM EDTInhaled Oxygen Concentration--Jtyjqq467 kg (223 lb)03/27/2025 8:54 AM EST Kvymjn738.8 cm (5' 10 )03/27/2025 8:54 AM ESTBody Mass Mjtol432003/27/2025 8:54 AM EST Plan of Treatment Health MaintenanceDue DateLast DoneCommentsCT Jnegbrnjfkoy91/07/1974FIT-DNA 1973FIT1973FOBT1973 5249Ptjyvpftrovri63/07/1974Influenza Vaccine (#1), 02/18/2016Postponed from 12/17/2024 (Patient Refused) Dznscueyf25, 03/02/2024, 02/04/2023, Additional history exists Cvuiihkjmja06, 01/27/2023olorectal Cancer Sczwgfpds69/12/2033 COVID-19 TpgaqlkNjgmazljgcxj06/04/2021, 04/24/2020neumococcal Vaccine: Pediatrics (0 to 5 Years) and At-Risk Patients (6 to 64 Years)Aged OutNo longer eligible based on patient's age to complete this topic Procedures Procedure NamePriorityDate/TimeAssociated DiagnosisCommentsCT CHEST WO IV MITNQWSSQpfexyh42/09/2025 8:35 AM EST Persistent cough for 3 weeks or longer History of immunosuppression Systemic lupus erythematosus, unspecified SLE type, unspecified organ involvement status (HCC) BI MAMMOGRAM SCREENING TOMOSYNTHESIS DPXGMELST52/28/2025 8:53 AM EST PFT WLPSUTJXJltnadc03/18/2025 7:03 AM EST Persistent cough COMPREHENSIVE METABOLIC YBGGPKhobhvv64/08/2025 3:26 PM EDT Persistent cough for 3 weeks or longer Tachycardia CBC (INCLUDES DIFF/PLT)Utzqbwk7001/23/2025 3:26 PM EDT Persistent cough for 3 weeks or longer Acute pharyngitis, unspecified etiology Tachycardia PHARYNGITIS/LARYNGITIS (HTRX)Wagchmd0701/23/2025 12:00 AM EDT XR CHEST 2 JYTSBEdlnnyf92/01/2025 9:27 AM EDT Acute cough COLONOSCOPY KZWMENEACIAolhugp89/12/2023 from Last 3 Months or Most Recently Relevant to Health Maintenance Results * CT chest wo IV contrast [...] BY: Bobby Butt MD Authorizing ProviderResult TypeResult StatusLifePoint Health CT PROCEDURES Final Result * Bilateral screening mammogram with tomosynthesis (03/15/2025 8:53 AM EST) Anatomical RegionLateralityModalityBreastBilateralMammographySpecimen (Source) Anatomical Location / LateralityCollection Method / VolumeCollection Time Received Time03/15/2025 8:53 AM EST Impressions 03/15/2025 8:56 AM EST NO MAMMOGRAPHIC EVIDENCE OF MALIGNANCY. ? ROUTINE FOLLOW-UP IS RECOMMENDED IN ONE YEAR. ? RESULT CODE: 1 ? Negative ? DENSITY CODE: 2 (approximately 25-50% glandular) There are scattered areas of fibroglandular density. ? FOLLOW UP: 1YR ? The false-negative rate of mammography is approximately 10-percent. ? Management of a palpable abnormality must be based on clinical grounds. ? Patient was entered into a reminder system with a target due date for the next mammogram. ? Impression dictated by: Juan Luis Brantley Jr., D.O. ??03/15/2025 8:54 AM ? Dictation Location: S01 ? Dictated By: ?Juan Luis Brantley Jr, DO ? 03/15/25 0853 ? Signed By: <Electronically signed by Juan Luis Brantley Jr DO in OV> ?03/15/25 0854 Narrative 03/15/2025 8:56 AM EST ?[facility] ? [address] ? [place] [address] ?[phone] ? Mammography Report ? Signed ? Patient: Meek,Anne M ?MR#: [id number] ?? 120 ? : 1975 ?Acct:[id number] ? Age/Sex: 49 / F ?Adm Date: 11/28/25 ? Loc: [place] ?Room: ?Type: REG CLI ?? Attending Dr: Samantha Resendez HARBOR ENGINEER-C ? Ordering Provider: Samantha Resendez, PA-C ? Date of Service: 03/15/25 ? Procedure(s): MM screening mammo BI w/CAD ?? Accession Number(s): ([id number]) MM/MM screening mammo BI w/CAD: Z12.31 ? Copies to: Samantha Resendez PA-C ?? Karla Wong MD ? CLINICAL DATA: ??Screening for malignancy. ? SCREENING MAMMOGRAM - FULL FIELD DIGITAL WITH TOMOSYNTHESIS AND CAD ? COMPARISON:Mammograms dating back to 2020 ? Tomosynthesis craniocaudal and mediolateral oblique views of both breasts were obtained using low- dose digital technique. ?? This examination was reviewed with the aid of CAD. ? FINDINGS: ? The breast tissue is composed of scattered fibroglandular densities. ??There are no dominant masses, typically malignant calcifications or architectural distortion. ??There has been no significant interval change. ? MM/MM screening mammo BI w/CAD ?? Procedure Note Juan Luis Brantley Jr., DO - 03/15/2025 [facility] [address] [place] [address] [address] [place] [id number] Mammography Report Signed Patient: Anne Mcdowell [facility]#: [id number] 120 : 1975Acct:[id number] Age/Sex: 49 / FAdm Date: 03/15/25 Loc: [place] Room:Type: [facility] Attending Dr: Samantha CARRANZA Ordering Provider: Samantha Resendez PA-C Date of Service: 03/15/25 Procedure(s): MM screening mammo BI w/CAD Accession Number(s): ([id number]) MM/MM screening mammo BI w/CAD: Z12.31 Copies to: ELIJAH Camacho MD CLINICAL DATA: Screening for malignancy. SCREENING MAMMOGRAM - FULL FIELD DIGITAL WITH TOMOSYNTHESIS AND CAD COMPARISON:Mammograms dating back to 2020 Tomosynthesis craniocaudal and mediolateral oblique views of both breastswere obtained using low- dose digital technique. This examination was reviewed with the aid ofCAD. FINDINGS: The breast tissue is composed of scattered fibroglandular densities.There are no dominant masses, typically malignant calcifications or architectural distortion. There hasbeen no significant interval change. MM/MM screening mammo BI w/CAD IMPRESSION: NO MAMMOGRAPHIC EVIDENCE OF MALIGNANCY. ROUTINE FOLLOW-UP IS RECOMMENDED IN ONE YEAR. RESULT CODE: 1 Negative DENSITY CODE: 2 (approximately 25-50% glandular) There are scattered areasof fibroglandular density. FOLLOW UP: 1YR The false-negative rate of mammography is approximately 10-percent. Management of a palpable abnormality must be based on clinical grounds. Patient was entered into a reminder system with a target due date for thenext mammogram. Impression dictated by: Juan Luis Brantley Jr., D.OOrville 03/15/2025 8:54 AM Dictation Location: DW01 Dictated By: Juan Luis Brantley Jr, DO 03/15/25 0853 Signed By: <Electronically signed by Juan Luis Brantley Jr DO inOV> 03/15/25 0854 Authorizing ProviderResult TypeResult StatusSamantha Resendez PAIMG BI PROCEDURES Final Result * Pulmonary Function Test (03/05/2025 7:03 AM EST)Anatomical RegionLaterality ModalityPFTSpecimen (Source)Anatomical Location / LateralityCollection Method / VolumeCollection TimeReceived Time Narrative 03/05/2025 11:24 AM EST PFT Interpretation 49-year-old female referred by Jessica MAN for pulmonary function test with a diagnosis of shortness breath and cough. ??She is a lifelong nonsmoker. ??Review of her spirometry does not demonstrate any evidence of obstructive changes. ??There was no significant response to bronchodilator therapy. ??There was no evidence air trapping or hyperinflation. ??Diffusion capacity is within normal limits. ??Overall this set of pulmonary function test does not demonstrate any evidence of obstructive or restrictive ventilatory defect. ??Clinical correlation is recommended. Authorizing ProviderResult TypeResult StatusSamantha Resendez PAIMG XR PROCEDURES Final Result * CBC and differential (01/23/2025 3:26 PM EDT)ComponentValueRef RangeTest MethodAnalysis TimePerformed AtPathologist SignatureWHITE BLOOD CELL COUNT9.3 3.8 - 10.8 Thousand/uLQUESTRED BLOOD CELL COUNT4.373.80 - 5.10 Million/uLQUEST QLFCFHVJLA36.311.7 - 15.5 g/mLPHJSUHHPRNRMTCJ83.535.0 - 45.0 %NAEOPASO95.180.0 - 100.0 hBPHBLZTAQ10.427.0 - 33.0 zbHXPZNTXOZ78.532.0 - 36.0 g/dLQUESTComment: For adults, a slight decrease in the calculated MCHC value (in the range of 30 to 32 g/dL) is most likely not clinically significant; however, it should be interpreted with caution in correlation with other red cell parameters and the patient's clinical condition. RDW12.111.0 - 15.0 %QUESTPLATELET EDERC433677 - 400 Thousand/uLQUESTMPV9.47.5 - 12.5 fLQUESTABSOLUTE NEUTROPHILS5,8401,500 - 7,800 cells/uLQUESTABSOLUTE LYMPHOCYTES2,677538 - 3,900 cells/uLQUESTABSOLUTE QZTIGZLPX217907 - 950 cells/uL QUESTABSOLUTE BEYGNTKBZWA1945 - 500 cells/uLQUESTABSOLUTE IUCCUTMKQ746 - 200 cells/gHBAVYNVHIWSETDGYN55.8%CTYDUIQKRCDVTNPI28.7%XPJRTVAVZRFEAT00.0%QUEST EOSINOPHILS1.0%QUESTBASOPHILS0.5%QUESTSpecimen (Source)Anatomical Location / LateralityCollection Method / VolumeCollection TimeReceived TimeBloodVenous blood specimen / Eycfupg8101/23/2025 3:26 PM EDT1 3:27 PM EDT Narrative Resulting Agency Comment Performing Organization Information ?Site ID: QPT ?Name: [facility] ?Address: [address] [place] [address], [address] [place] [phone] ?Director: Neri Combs MD Authorizing ProviderResult TypeResult StatusSamantha Resendez PALAB BLOOD ORDERABLESFinal ResultPerforming OrganizationAddressCity/State/ZIP CodePhone Number QUEST * (ABNORMAL) Comprehensive metabolic panel (01/23/2025 3:26 PM EDT)Component ValueRef RangeTest MethodAnalysis TimePerformed AtPathologist SignatureGlucose 8465 - 99 mg/dLQUESTComment: ? Fasting reference interval BUN27(H)7 - 25 mg/dLQUESTCreatinine0.830.50 - 1.03 mg/jGHCIMAKSSW55> OR = 60 mL/min/1.62c8KUACPAZZ/CREATININE RATIO33(H)6 - 22 (calc)VLITSUnweyu468501 - 146 mmol/LQUESTPotassium, Bld3.83.5 - 5.3 mmol/WMAORUSxdixrpz5949 - 110 mmol/LQUEST Carbon Yrerbgc8692 - 32 mmol/LQUESTCalcium9.38.6 - 10.4 mg/dLQUESTPROTEIN, TOTAL 7.26.1 - 8.1 g/dLQUESTALBUMIN4.43.6 - 5.1 g/dLQUESTGLOBULIN2.81.9 - 3.7 g/dL (calc)QUESTALBUMIN/GLOBULIN RATIO1.61.0 - 2.5 (calc)QUESTBILIRUBIN, TOTAL0.30.2 - 1.2 mg/dLQUESTALKALINE POBCTKTXUKT4929 - 153 U/VCRVTTBNW6586 - 35 U/LQUESTALT 226 - 29 U/LQUESTSpecimen (Source)Anatomical Location / LateralityCollection Method / VolumeCollection TimeReceived TimeBloodVenous blood specimen / Unknown 01/23/2025 3:26 PM EDT1 3:27 PM EDT Narrative Resulting Agency Comment Performing Organization Information ?Site ID: QPT ?Name: [facility] ?Address: [address] [place] [address], [address] [place] [phone] ?Director: Neri Combs MD Authorizing ProviderResult TypeResult StatusSamantha Resendez PALAB BLOOD ORDERABLESFinal ResultPerforming OrganizationAddressCity/State/ZIP CodePhone Number [facility]ST * PHARYNGITIS/LARYNGITIS (HTRX) (01/23/2025 12:00 AM EDT)ComponentValueRef Range Test MethodAnalysis TimePerformed AtPathologist SignatureCHLAMYDIA PNEUMONIAE (PHARYNGITIS/LARYNGITIS)019.961 - 24.689 ppm01/25/2025 6:57 AM EDT [facility] at LabPortCHLAMYDIA PNEUMONIAE (PHARYNGITIS/LARYNGITIS)Not Dapjbfca56.961 - 24.689 ppm01/25/2025 6:57 AM EDTHealthTrackRx at [facility] COVID-19 CORONAVIRUS (SARS-COV-2) (PHARYNGITIS/LARYNGITIS)023.000 - 31.947 ppm 01/25/2025 6:57 AM EDTHealthTrackRx at [facility] CenterCOVID-19 CORONAVIRUS (SARS-COV-2) (PHARYNGITIS/LARYNGITIS)Not Qtcubpbs96.000 - 31.947 ppm01/25/2025 6:57 AM EDTHealthTrackRx at [facility] CenterPortENTEROVIRUS D68 (PHARYNGITIS/LARYNGITIS)0 23.000 - 32.268 ppm01/25/2025 6:57 AM EDTHealthTrackRx at LabPortENTEROVIRUS D68 (PHARYNGITIS/LARYNGITIS)Not Cmxfmqlg96.000 - 32.268 ppm01/25/2025 6:57 AM EDTHealthTrackRx at [facility] METAPNEUMOVIRUS (PHARYNGITIS/LARYNGITIS)0 23.000 - 33.630 ppm01/25/2025 6:57 AM EDT[facility] at [facility] METAPNEUMOVIRUS (PHARYNGITIS/LARYNGITIS)Not Lhukgalz52.000 - 33.630 ppm 01/25/2025 6:57 AM EDTHealthTrackRx at LabRiverview HospitalINFLUENZA VIRUS A, B (PHARYNGITIS/LARYNGITIS)023.000 - 29.803 ppm01/25/2025 6:57 AM EDT [facility] LabRiverview HospitalINFLUENZA VIRUS A, B (PHARYNGITIS/LARYNGITIS)Not Njqswjbq30.000 - 29.803 ppm01/25/2025 6:57 AM EDT[facility] at [facility] MYCOPLASMA PNEUMONIAE (PHARYNGITIS/LARYNGITIS)019.961 - 24.689 ppm01/25/2025 6:57 AM EDTHealthTrackRx at [facility] CenterMYCOPLASMA PNEUMONIAE (PHARYNGITIS/LARYNGITIS)Not Ahbhdykq89.961 - 24.689 ppm01/25/2025 6:57 AM EDT [facility] CenterPortCORONAVIRUS (NL63, OC43, HKU1) (PHARYNGITIS/LARYNGITIS)023.000 - 30.477 ppm01/25/2025 6:57 AM EDT [facility] at LabPortCORONAVIRUS (NL63, OC43, HKU1) (PHARYNGITIS/LARYNGITIS)Not Gwipyjsl01.000 - 30.477 ppm01/25/2025 6:57 AM EDT [facility] CenterPARAINFLUENZA VIRUS (TYPES 1, 2, 3, 4) (PHARYNGITIS/LARYNGITIS)023.000 - 31.487 ppm01/25/2025 6:57 AM EDT [facility] LabRiverview HospitalPARAINFLUENZA VIRUS (TYPES 1, 2, 3, 4) (PHARYNGITIS/LARYNGITIS)Not Awotqhyr31.000 - 31.487 ppm01/25/2025 6:57 AM EDT [facility] CenterRESPIRATORY SYNCYTIAL VIRUS (PHARYNGITIS/LARYNGITIS)0 23.000 - 31.953 ppm01/25/2025 6:57 AM EDTHealthTrackRx at [facility] CenterRESPIRATORY SYNCYTIAL VIRUS (PHARYNGITIS/LARYNGITIS)Not Oedkkaqy20.000 - 31.953 ppm 01/25/2025 6:57 AM EDTHealthTrackRx at LabPortRHINOVIRUS-ENTEROVIRUS (PHARYNGITIS/LARYNGITIS)023.000 - 30.000 ppm01/25/2025 6:57 AM EDT [facility] at LabPortRHINOVIRUS-ENTEROVIRUS (PHARYNGITIS/LARYNGITIS)Not Pmyxfisy99.000 - 30.000 ppm01/25/2025 6:57 AM EDTHealthTrackRx at LabPort STREPTOCOCCUS PYOGENES (GROUP A STREP) (PHARYNGITIS/LARYNGITIS)019.961 - 24.689 ppm01/25/2025 6:57 AM EDTHealthTrackRx at LabPortSTREPTOCOCCUS PYOGENES (GROUP A STREP) (PHARYNGITIS/LARYNGITIS)Not Kzfaimkq35.961 - 24.689 ppm 01/25/2025 6:57 AM EDTHealthTrackRx at LabPortSTREPTOCOCCUS DYSGALACTIAE (GROUP C AND G STREP)019.961 - 24.689 ppm01/25/2025 6:57 AM EDTHealthTrackRx at LabPortSTREPTOCOCCUS DYSGALACTIAE (GROUP C AND G STREP)Not Aadrjktc04.961 - 24.689 ppm01/25/2025 6:57 AM EDTHealthTrackRx at LabPortADENOVIRUS HADV-B (PHARYNGITIS/LARYNGITIS)023.000 - 31.833 ppm01/25/2025 6:57 AM EDT [facility] at LabPortADENOVIRUS HADV-B (PHARYNGITIS/LARYNGITIS)Not Detected 23.000 - 31.833 ppm01/25/2025 6:57 AM EDTHealthTrackRx at LabPortFUSOBACTERIUM NECROPHORUM, TVUSHEAXX460.961 - 24.689 ppm01/25/2025 6:57 AM EDTHealthTrackRx at LabPortFUSOBACTERIUM NECROPHORUM, NUCLEATUMNot Ocoytpcv87.961 - 24.689 ppm 01/25/2025 6:57 AM EDTHealthTrackRx at LabPortEPSTEIN-VERONICA VIRUS (HUMAN HERPESVIRUS 4) (PHARYNGITIS/LARYNGITIS ADD-ON)023.000 - 30.158 ppm01/25/2025 6:57 AM EDTHealthTrackRx at [facility] CenterEPSTEIN-VERONICA VIRUS (HUMAN HERPESVIRUS 4) (PHARYNGITIS/LARYNGITIS ADD-ON)Not Ppqfnnpm54.000 - 30.158 ppm01/25/2025 6:57 AM EDTHealthTrackRx at LabRiverview HospitalSpecimen (Source)Anatomical Location / LateralityCollection Method / VolumeCollection TimeReceived TimeNasopharyngeal 12:04 AM EDT Narrative Authorizing ProviderResult TypeResult StatusSamantha Resendez PALAB BLOOD ORDERABLESFinal ResultPerforming OrganizationAddressCity/State/ZIP CodePhone Number [facility] [address] [address] [address] * XR chest 2 views (01/16/2025 9:27 AM EDT)Anatomical RegionLateralityModality ChestRadiographic ImagingSpecimen (Source)Anatomical Location / Laterality Collection Method / VolumeCollection TimeReceived Time01/16/2025 2:57 PM EDT Impressions 01/16/2025 2:58 PM EDT No radiographic evidence of acute intrathoracic process. ELECTRONICALLY SIGNED BY: Charles Oakes DO Narrative 01/16/2025 2:58 PM EDT EXAMINATION: XR CHEST 2 VIEWS HISTORY: Cough TECHNIQUE: Frontal and lateral views of the chest. COMPARISON: April 20, 2021 FINDINGS: Cardiomediastinal silhouette is within normal limits. No pneumothorax, pleural effusion, or consolidation. No acute osseous abnormality. Procedure Note Charles Oakes DO - 01/16/2025 EXAMINATION: XR CHEST 2 VIEWS HISTORY: Cough TECHNIQUE: Frontal and lateral views of the chest. COMPARISON: April 20, 2021 FINDINGS: Cardiomediastinal silhouette is within normal limits. No pneumothorax,pleural effusion, or consolidation. No acute osseous abnormality. IMPRESSION: No radiographic evidence of acute intrathoracic process. ELECTRONICALLY SIGNED BY: Charles Oakes DO Authorizing ProviderResult TypeResult StatusSamantha Resendez PAIMG XR PROCEDURES Final Result * COLONOSCOPY DIAGNOSTIC (01/27/2023)Anatomical RegionLateralityModality Radiographic ImagingSpecimen (Source)Anatomical Location / Laterality Collection Method / VolumeCollection TimeReceived Time01/27/2023 Narrative 01/27/2023 10:05 AM EDT Pt is to repeat again in 5 years Authorizing ProviderResult TypeResult StatusKarla Wong MDIMG XR PROCEDURES Final Result from Last 3 Months or Most Recently Relevant to Health Maintenance Insurance Care Teams Team MemberRelationshipSpecialtyStart DateEnd Date Karla Wong MD [address] [facility] [address] [place] [address] PCP - GeneralFamily Medicine10/18/23
--- OUTSIDE RECORDS SUMMARY | 2025-04-06 10:24 | XMS_ITS | Encounter Summary ---
Author Organization [facility] Address [address] [place] [address] Care Team Providers Care Retreader Name Role Phone Karla Wong MD Primary Care Provider [phone] Reason for Visit * ReasonCommentsMed Refill Encounter Details DateTypeDepartmentCare Team (Latest Contact Info)Eovpkzrlxtr72/19/2025Refill [facility] [address] [place] [address] [place] [id number] Karla Wong MD [address] [place] [address] [place] [address] Acute bronchitis, unspecified organism Social History Tobacco UseTypesPacks/DayYears UsedDateSmoking Tobacco: NeverSmokeless Tobacco: NeverAlcohol UseStandard Drinks/WeekCommentsYes0 (1 standard drink = 0.6 oz pure alcohol)caffeine: coffee, sodaPHQ-2AnswerDate RecordedPatient Health Questionnaire-2 [id number] and Gender Information ValueDate RecordedSex Assigned at BirthNot on fileLegal LoyGcrjhh30/15/2023 6:36 PM EDTGender IdentityNot on fileSexual OrientationNot on filedocumented as of this encounter Plan of Treatment Not on file documented as of this encounter Visit Diagnoses Diagnosis Acute bronchitis, unspecified organism documented in this encounter Care Teams Team MemberRelationshipSpecialtyStart DateEnd Date Karla Wong MD [address] [place] [place] [address] PCP - GeneralFamily Medicine10/18/23documented as of this encounter
--- OUTSIDE RECORDS SUMMARY | 2025-04-06 10:24 | XMS_ITS | Clinical Summary ---
Author Organization [facility] tem Address [id number] [address] [place] [address] Care Team Providers Care Hard Tile Setter Name Role Phone Karla Wong MD Primary Care Provider [phone] Allergies Active AllergyReactionsCriticalityNoted DateComments Sulfamethoxazole-Kcyiizsdgvhv31/08/2018 hives Medications MedicationSigDispense QuantityRefillsLast FilledStart DateEnd DateStatus olmesartan (BENICAR) 40 mg tablet Take 40 mg by mouth daily.Active levothyroxine (SYNTHROID, LEVOTHROID) 75 MCG tablet Take 75 mcg by mouth daily.Active Social History Tobacco UseTypesPacks/DayYears UsedDateSmoking Tobacco: NeverSmokeless Tobacco: NeverAlcohol UseStandard Drinks/WeekCommentsYes0 (1 standard drink = 0.6 oz pure alcohol)occasionalChildcareAnswerDate ViromteeKjhgclyalCtmkula06/13/2019 EmploymentAnswerDate OhzdvvmuKzosalxdvwJbteggz91/13/2019Purpose - LifeAnswerDate RecordedPurpose and direction in orykKskuphy40/11/2021CommentsNoSex and Gender InformationValueDate RecordedSex Assigned at BirthNot on fileLegal Sex Vpmpkz7308/22/2017 8:44 AM EDTGender IdentityNot on fileSexual OrientationNot on file Last Filed Vital Signs Vital SignReadingTime TakenCommentsBlood Cbfymlhb381/7409/14/2017 10:45 AM EDT Qymsp101709/14/2017 11:00 AM NIMVttfdvyampu30.6 ??C (97.8 ??F)09/14/2017 8:34 AM EDTRespiratory Tpnh651009/14/2017 10:20 AM EDTOxygen Kttsuydkde43%09/14/2017 11:00 AM EDTInhaled Oxygen Concentration--Kfukzm81.9 kg (185 lb)09/14/2017 8:34 AM EDT Hadxmb394.8 cm (5' 10 )09/14/2017 8:34 AM EDTBody Mass Index26.54009/14/2017 8:34 AM EDT Plan of Treatment Not on file Medical Devices Not on file Insurance * Guarantor: Anne Eden TypeRelation to PatientDate of BirthPhone Billing AddressPersonal/AntbsuIvvc[birth year][id number] [place], [place] [id number] Care Teams Team MemberRelationshipSpecialtyStart DateEnd Date [place] [address] [place] [address] [facility]08/23/17
[2025-04-06 10:26] VITALS: O2SAT 96
[2025-04-06 10:31] LABS: SARS-CoV-2 Ag POSITIVE (NEGATIVE)
[2025-04-06 10:51] VITALS: BP 132/86; PULSE 107; O2SAT 97
== END 2025-04-06 11:05 | disposition home or self-care (01) ==
PROVIDERS: Emergency Provider Emergency Medicine; PCP Family Medicine
DX: U07.1 COVID-19 (principal); R05.3 Chronic cough
CPT/HCPCS: 71045; 87804; 87811; 99283